=== PATIENT | male | born 1980 | race Caucasian/White ===

== ENCOUNTER 2023-08-06 19:32 | Emergency (ER) | payer MEDICARE, MEDICAID, SELFPAY ==
[2023-08-06 20:11] VITALS: BP 156/99; PULSE 75; RESP 18; TEMP 36.9; O2SAT 95; BMI 32.6
[2023-08-06 21:35] VITALS: BP 156/96; PULSE 77; RESP 16; TEMP 36.8; O2SAT 98
--- NOTE | 2023-08-06 22:35 | ED_ITS ---
HPI - Eye Problem General Chief complaint: Eye Problems Stated complaint: R eye is watery/red Time Seen by Provider: 08/06/23 22:26 Source: patient Mode of arrival: ambulatory Limitations: no limitations History of Present Illness HPI Narrative: Patient comes to the emergency room accompanied by family. Patient complaining of watery eyes. Patient states that he has several allergies, takes Kristine daily. Patient's mother complained that there was a bump on the patient's eyelid on the left. Patient states that he has no pain, no foreign body sensation, no itching, no burning sensation or redness. Patient states that he does not have any crusting of the eyes. No visual changes. Related Data Allergies Allergy/AdvReac Type Severity Reaction Status Date / Time amoxicillin [AMOXICILLIN] Allergy Mild RASH Unverified 08/03/20 15:24 ENVIRONMENTAL Allergy Mild UNKNOWN Uncoded 08/03/20 15:24 Review of Systems Review of Systems: Constitutional : No Weight loss, No Fever, No Chills, No Night Sweats, No Fatigue, No Malaise ENT/Mouth : No Hearing loss, No Ear Pain, No Nasal Congestion, No Sinus Pain, No Hoarseness, No sore throat, No Rhinorrhea, No Swallowing Difficulty Eyes: No Eye Pain, No Swelling, No Redness, dying of watery eyes, no discharge, no vision changes, no foreign body sensation small bump in the eyelid on the left Cardiovascular : No Chest Pain, No SOB, No Dyspnea on Exertion, No Orthopnea, No Edema, No Palpitations Respiratory : No Cough, No Sputum, No Wheezing, No Smoke Exposure, No Dyspnea Gastrointestinal : No Nausea, No Vomiting, No Diarrhea, No Constipation, No abdominal Pain, No Hematochezia, No Melena Genitourinary : no irregular bleeding, No Dysuria, No Urinary Frequency, No Hematuria, No Urinary Incontinence, No Urgency, No Flank Pain, No Urinary Flow Changes, No Hesitancy Musculoskeletal : No joint pain, No Myalgias, No Joint Swelling Skin : No Skin Lesions, No rash Neuro : No Weakness, No Numbness, No Paresthesias, No Loss of Consciousness, No Dizziness, No Headache Psych : No Anxiety/Panic, No Depression, No SI/HI/AH/VH, No Social Issues, Heme/Lymph: No Bruising, No Bleeding,No Lymphadenopathy Endocrine : No Polyuria, No Polydipsia, No Temperature Intolerance PMFSH Past Medical History Medical History (Updated 08/06/23 @ 22:40 by Verona Mcdonough MD) Cognitive developmental delay Social History Social History Advance Directives: No Advance Directives Information Provided: No Physical Exam Vital Signs: Vital Signs: Last Vital Signs Temp 98.2 F 08/06/23 21:35 Pulse 77 08/06/23 21:35 Resp 16 08/06/23 21:35 BP 156/96 H 08/06/23 21:35 Pulse Ox 98 08/06/23 21:35 O2 Del Method Room Air 08/06/23 21:35 BMI result Body Mass Index 32.6 Const: Other: Constitutional : No Weight loss, No Fever, No Chills, No Night Sweats, No Fatigue, No Malaise ENT/Mouth : No Hearing loss, No Ear Pain, No Nasal Congestion, No Sinus Pain, No Hoarseness, No sore throat, No Rhinorrhea, No Swallowing Difficulty Eyes: Bilateral watery eyes, no redness, small stye on the left eye. No Eye Pain, No Swelling, No Redness, No Foreign Body, No Discharge, No Vision Changes Cardiovascular : No Chest Pain, No SOB, No Dyspnea on Exertion, No Orthopnea, No Edema, No Palpitations Respiratory : No Cough, No Sputum, No Wheezing, No Smoke Exposure, No Dyspnea Gastrointestinal : No Nausea, No Vomiting, No Diarrhea, No Constipation, No abdominal Pain, No Hematochezia, No Melena Genitourinary : no irregular bleeding, No Dysuria, No Urinary Frequency, No Hematuria, No Urinary Incontinence, No Urgency, No Flank Pain, No Urinary Flow Changes, No Hesitancy Musculoskeletal : No joint pain, No Myalgias, No Joint Swelling Skin : No Skin Lesions, No rash Neuro : No Weakness, No Numbness, No Paresthesias, No Loss of Consciousness, No Dizziness, No Headache Psych : No Anxiety/Panic, No Depression, No SI/HI/AH/VH, No Social Issues, Heme/Lymph: No Bruising, No Bleeding,No Lymphadenopathy Endocrine : No Polyuria, No Polydipsia, No Temperature Intolerance Medical Decision Making Medical Decision Making MDM Narrative: Discussed the physical exam with the patient and his mother. Patient likely has allergies making his eyes teary. Patient already taking Kristine. 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 Also, discussed with the patient he has a stye, at this time, antibiotics not indicated, discussed with the patient to use warm compresses on both eyes. Patient and mother agree with plan. Differential Diagnosis Differential Diagnoses: The differential diagnosis associated with the presentation includes (Stye, allergic rhinitis, viral conjunctivitis) Discharge Plan Discharge Clinical Impression: Stye, Watery eyes Patient Disposition: Home, Self-Care Instructions: [facility] (ED) Additional Instructions: You may go to work tomorrow. If you feel like you cannot go, you have a work note for 08/07/2023. Please follow-up with your primary care physician tomorrow. If you have any worsening or new symptoms, please return to the emergency room or call 911 Stand Alone Forms: Work/School Release
== END 2023-08-06 22:59 | disposition home or self-care (01) ==
PROVIDERS: Emergency Provider Emergency Medicine; PCP Internal Medicine
DX: H00.013 Hordeolum externum right eye, unspecified eyelid (principal)
CPT/HCPCS: 99282; 99283

== ENCOUNTER 2024-07-18 12:42 | Emergency (ER) | payer OTHER, MEDICARE, MEDICAID, SELFPAY ==
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
[2024-07-18 13:20] VITALS: BP 116/110; PULSE 85; RESP 16; TEMP 36.4; O2SAT 94; BMI 25.0
[2024-07-18 13:49] VITALS: BP 176/112
[2024-07-18] MEDS: Ibuprofen 600 MG TABLET PO (13:49)
[2024-07-18 15:32] VITALS: BP 168/90; PULSE 80; RESP 18; TEMP 36.5; O2SAT 98
[2024-07-18 15:33] VITALS: BP 168/90; PULSE 80; RESP 18; TEMP 36.5; O2SAT 98
== END 2024-07-18 15:33 | disposition home or self-care (01) ==
PROVIDERS: Emergency Provider Emergency Medicine; PCP Internal Medicine
DX: S13.4XXA Sprain of ligaments of cervical spine, initial encounter (principal); S49.92XA Unspecified injury of left shoulder and upper arm, initial encounter; R51.9 Headache, unspecified; M54.2 Cervicalgia; M25.512 Pain in left shoulder; V43.62XA Car passenger injured in collision with other type car in traffic accident, initial encounter; Y93.89 Activity, other specified; Y92.488 Other paved roadways as the place of occurrence of the external cause; Y99.8 Other external cause status
CPT/HCPCS: 70450; 72125; 73030; 99283; 99284

== ENCOUNTER 2025-07-05 09:34 | Outpatient (AMB) | payer MEDICARE, MEDICAID, SELFPAY ==
--- OUTSIDE RECORDS SUMMARY | 2025-07-05 10:39 | XMS_ITS ---
Author Name [facility] Organization Unknown Care Team Organization Name Specialty Phone Email Start Date End Da te [facility] 04/25/202307/05 [facility] 11/25/2022 07/05/2024
--- OUTSIDE RECORDS SUMMARY | 2025-07-05 10:39 | XMS_ITS | Clinical Summary ---
Author Organization [facility] [address] [place] [address] [place] [phone] Phone Care Team Providers Care Chief Medical Technologist Name Role Phone Carlos Garber MD Primary Care Provider [phone] Allergies Active Allergy Reactions Criticality Noted Date Comments Amoxicillin Hives High 01/27/2015 Other Anaphylaxis,Itching,Runny nose High 09/12 Seasonal Medications loratadine (Wal-itin) 10 mg tablet Take 1 tablet (10 mg total) by mouth 1 (one) time each day. Patient Buy OTC Active olopatadine (PATANOL) 0.1 % ophthalmic solution Administer 1 drop into both eyes 1 (one) time each day. Patient buy OTC Active metFORMIN XR (GLUCOPHAGE-XR) 500 mg 24 hr tablet Take 2 tablets (1,000 mg total) by mouth 1 (one) time each day with breakfast. Do not crush, chew, or split. 180 each 1 5 Active cholecalciferol (VITAMIN D-3) 25 mcg (1,000 unit) tablet Take 1 tablet (1,000 Units total) by mouth 1 (one) time each day. 90 each 1 5 Active albuterol HFA (Proventil HFA) 90 mcg/actuation inhalerIndicati ons:Bronchitis Inhale 2 puffs by mouth every 4 (four) hours if needed for wheezing or shortness of breath. 6.7 g 5 01/20/20 26 Active Active Problems Problem Noted Date Diagnosed Date Type 2 diabetes mellitus wit hout complication ([facility] V24, [facility] V28) 03/30/2024 Hypercholesteremia 06/10/2023 Obesity (BMI 30-39.9) 04/09/2019 GERD (gastroesophageal reflux disease) 8 TRINITY (obstructive sleep apnea) 04/26/2016 Mixed hyperlipidemia 04/01/2016 Assessment & Plan (01/19/2025 6:39 PM EST): Last LDL 148. Triglyceride 329. Patient was started on statin. However per mom he did not start this medication. Cardiovascular risk and specific lipid/LDL goals reiterated. Elevation in triglycerides can contribute to causing other complications such as Fatty Liver or Pancreatis. Patient is to decrease carbs and fatty foods, increase exercise and some modest weight loss can be helpful. Nutritional and exercise counseling - Approaches towards weight loss were encouraged, including burning more calories than one takes in by frequent, small meals, portion control, avoiding eating before bedtime, regular exercise with an emphasis on duration rather than intensity , and strength training exercise. Patient is to recheck Lipid profile prior to next appointment. 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 Allergic rhinitis 02/18/2007 Speech disturbance 02/18/2007 Overview (10/27/2024): IMO update Encounters Date Type Department Care Team Description 06/15/2025 10:00 AM EDT Office Visit Adult Medicine [address] [phone] Angel Weber NP Type 2 diabetes mellitus without complication, without long-term current use of insulin ([facility] V24, [facility] V28) (Primary Dx); Hypercholesteremia; TRINITY (obstructive sleep apnea); Need for hepatitis C screening test; Encounter for screening for cardiovascular disorders from Last 3 Months Immunizations Name Administration Dates Next Due DTP 07/18/1987, 3,1982,1981,1982 [id number] (Pentacel) 2mo to less than 5yo 05/18/1985 Hepatitis B Pediatric (Enger ix B; Recombivax HB) to less than 20 yo 08/11/1998,03/10/1998,02/06/1998 Influenza Quadravalent, MDCK , 0.5ml, preservative free (Flucelvax) 6mo and older 09/10/2023,10/30/2022,11/11/2018 Influenza trivalent, 0.5mL, preservative free (Fluarix; FluLaval; Fluzone) ages 6mo and older (Afluria) 3 years and older 09/13/2024,09/21/2014 Influenza, Unspecified 04/01/2015 MMR, measles mumps and rubel la Live (Priorix; M-M-R II) 12mo and older 10/01/1993,1982 OPV 07/18/1987, 3,1982,1981 PPD Test 09/21/2014,05/30/1992,07/08/1986 [facility] SARS-CoV-2 COVID-19, mRNA, LNP-S, preservative free 12/20/2021 Td Tetanus diptheria (Tdvax) 7yo and older 08/13/2017 Tdap Tetanus diptheria acell ular pertussis (Boostrix; Adacel) 7yo and older 02/18/2007 Surgical History Surgery Date Site/Laterality Comments OTHER SURGICAL HISTORY PROCEDURE: DENIES PREVIOUS SURGERY Medical History Medical History Date Comments Allergic rhinitis, cause unspecified 02/18/2007 DX:Allergic rhinitis, cause unspecified Other speech disturbance 02/18/2007 DX:Othe r speech disturbance Trisomy 21 DX:Trisomy 21 Prediabetes DX:Prediabetes Overweight DX:Overweight Hyperlipidemia DX:Hyperlipidemi a Snoring DX:Snoring Obesity (BMI 30-39.9) 04/09/2019 DX:Obesity (BMI 30-39.9) Family History Medical History Relation Name Comments Diabetes Maternal Grandmother Coronary artery disease Neg Hx Hypertension Neg Hx Other cancer Neg Hx Relation Name Status Comments Brother Alive Father Alive Maternal Grandmother Alive diabete s Mother Alive Sister 1 Alive Sister 2 Alive Sister 3 Alive Social History Tobacco Use Types Packs/Day Years Used Date Smoking Tobacco: Never Smokeless Tobacco: Never Tobacco Cessation:Counseling Given: Not Answered Alcohol Use Standard Drinks/Week Comments Yes 0 (1 standard drink = 0.6 oz pur e alcohol) Sex and Gender Information Value Date Recorded Sex Assigned at Not on file Legal Sex Male 3:04 PM EST Gender Identity Not on file Sexual Orientation Not on file Obstetrics History Last Filed Vital Signs Vital Sign Reading Time Taken Comments Blood Pressure 112/80 06/15/2025 9:56 AM EDT Pulse 75 06/15/2025 9:56 AM EDT Temperature 36.3 C (97.4 F) 06/15/2025 9:56 AM EDT Respiratory Rate 14 06/15/2025 9:56 AM EDT Oxygen Saturation 95% 01/19/2025 2:26 PM EST Inhaled Oxygen Concentration - - Weight 82.1 kg (181 lb) 06/15/2025 9:56 AM EDT Height 160 cm (5' 3 ) 06/15/2025 9:56 AM EDT Body Mass Index 32.06 06/15/2025 9:56 AM EDT Plan of Treatment Upcoming Encounters Date Type Department Care Team (Late st Contact Info) Description 12/19/2025 11:15 AM EST Office Visit Adult Medicine [facility] [address] [place] [address] Carlos Garber MD [address] [place] [address] Health Maintenance Due Date Last Done Comments Social Influencers of Health Screening 10/26/2022 Medicare Annual Wellness Visit 06/13/2024 06/13/2023 Influenza Vaccine (#1) 2025 , 09/10/2023, 10/30/2022, Additional history exists Diabetes: Blood Sugar Control Test (HGBA1C) 12/16/2025 06/15/2025, 02/03/2025, 09/13/2024, Additional history exists Diabetes: Annual Urine Albumin-Creatinine Ratio (uACR) 02/03/2026 02/03/2025, 09/13/2024 Diabetes: Annual Retina Eye Exam 02/22/2026 02/22/2025 Diabetes: Annual Foot Exam 06/15/202606/15, 06/15/2025, 06/15/2025, Additional history exists Diabetes: Annual GFR (Glomerular Filtration Rate) 06/15/2026 06/15/2025, 02/03/2025, 09/13/2024, Additional history exists DTaP,Tdap,and Td Vaccines (8 - Td or Tdap) 08/13/2027 08/13/2017, 02/18/2007, 07/18/1987, Additional history exists Cholesterol Screening (Lipid Panel) 02/03/2030 02/03/2025, 09/13/2024, 09/13/2024 HIB Vaccines Completed 05/18/1985, 05/18/1985 IPV Vaccines Completed 07/18/1987, 12/1984, 11/14/1983, Additional history exists MMR Vaccines Completed 10/01/1993, 1982 Hepatitis B Vaccines Completed 08/11/1998, 03/10/1998, 02/06/1998 COVID-19 Vaccine Discontinued 12/20/2021, 03/2021, 02/27/2021 Depression Screening Completed 06/15/2025 Hepatitis C Screening Completed 06/15/2025 HIV Screening Discontinued HPV Vaccines Aged Out No longer eligi ble based on patient's age to complete this topic Hepatitis A Vaccines Aged Out No long er eligible based on patient's age to complete this topic Meningococcal ACWY Vaccine Aged Out N o longer eligible based on patient's age to complete this topic Meningococcal B Vaccine Aged Out No l onger eligible based on patient's age to complete this topic Pneumococcal Vaccine: Pediatrics (0 to 5 Years) and At-Risk Patients (6 to 49 Years) Discontinued RSV Immunization Patients Under 20 months Aged Out No longer eligible based on patient's age to complete this topic Varicella Vaccines Aged Out No longer eligible based on patient's age to complete this topic Procedures Procedure Name Priority Date/Time Associated Diagnosis Comments ASPARTATE AMINOTRANSFERASE Routine 06/15/2025 10:39 AM EDT Type 2 diabetes mellitus without complication, without long-term current use of insulin ([facility] V24, [facility] V28) Mixed hyperlipidemia ALANINE AMINOTRANSFERASE Routine 06/15/2025 10:39 AM EDT Type 2 diabetes mellitus without complication, without long-term current use of insulin ([facility] V24, [facility] V28) Mixed hyperlipidemia BASIC METABOLIC PANEL Routine 06/15/2025 10:39 AM EDT Type 2 diabetes mellitus without complication, without long-term current use of insulin ([facility] V24, [facility] V28) Hypercholesteremia Gastroesophageal reflux disease without esophagitis TRINITY (obstructive sleep apnea) Encounter for screening for cardiovascular disorders Need for hepatitis C screening test HEMOGLOBIN A1C Routine 06/15/2025 10:39 AM EDT Type 2 diabetes mellitus without complication, without long-term current use of insulin ([facility] V24, [facility] V28) Hypercholesteremia Gastroesophageal reflux disease without esophagitis TRINITY (obstructive sleep apnea) Encounter for screening for cardiovascular disorders Need for hepatitis C screening test THYROID STIMULATING HORMONE WITH REFLEX TO FREE T4 AND FREE T3 Routine 06/15/2025 10:39 AM EDT Type 2 diabetes mellitus without complication, without long-term current use of insulin ([facility] V24, [facility] V28) Hypercholesteremia Gastroesophageal reflux disease without esophagitis TRINITY (obstructive sleep apnea) Encounter for screening for cardiovascular disorders Need for hepatitis C screening test HEPATITIS C ANTIBODY Routine 06/15/2025 10:39 AM EDT Need for hepatitis C screening test POC GLUCOSE Routine 06/15/2025 10:24 AM EDT Type 2 diabetes mellitus without complication, without long-term current use of insulin ([facility] V24, [facility] V28) Hypercholesteremia TRINITY (obstructive sleep apnea) Encounter for screening for cardiovascular disorders Need for hepatitis C screening test MICROALBUMIN CREATININE URINE RATIO Routine 02/03/2025 7:54 AM EDT Type 2 diabetes mellitus with obesity ([facility] V24, [facility] V28) LIPID PANEL WITH REFLEX TO DIRECT LDL Routine 02/03/2025 7:54 AM EDT Type 2 diabetes mellitus with obesity ([facility] V24, [facility] V28) HM DIABETES FOOT EXAM Routine 05/04/2024 from Last 3 Months or Most Recently Relevant to Health Maintenance Results * Hepatitis C antibody (06/15/2025 10:39 AM EDT) [facility] Hepatitis C Antibody Negative Negative LAB CHEMISTRY METHOD 06/15/2025 2:19 PM EDT [facility] Blood Venous blood specimen / Unknown Venipuncture / Unknown 06/15/2025 10:39 AM EDT 06/15/2025 10:39 AM EDT Angel Weber SMOKE EATER LAB BLOOD ORDERABLES Final R esult Performing Organization Address [facility] Co de Phone Number [facility] [address] [place] [address], [place] [phone] * Thyroid stimulating hormone with reflex to free t4 and free t3 (06/15/2025 10:39 AM EDT) [facility] TSH 2.12 0.40 - 4.00 mcIU/mL LAB CHEMISTRY METHOD 06/15/2025 1:39 PM EDT [facility] Blood Venous blood specimen / Unknown Venipuncture / Unknown 06/15/2025 10:39 AM EDT 06/15/2025 10:39 AM EDT Angel Weber SMOKE EATER LAB BLOOD ORDERABLES Final R esult Performing Organization Address City/[facility]/ZIP Co de Phone Number [facility] [address] [place] [address], [place] [phone] * Alanine aminotransferase (06/15/2025 10:39 AM EDT) [facility] ALT (SGPT) 32 10 - 60 unit/L LAB CHEMISTRY METHOD 06/15/2025 12:55 PM EDT [facility] Blood Venous blood specimen / Unknown Venipuncture / Unknown 06/15/2025 10:39 AM EDT 06/15/2025 10:39 AM EDT John ALANIS LAB BLOOD ORDERABLES Fin al Result Performing Organization Address City/[facility]/ZIP Co de Phone Number [facility] [address] [place] [address], [place] [phone] * Aspartate aminotransferase (06/15/2025 10:39 AM EDT) [facility] AST (SGOT) 15 10 - 42 unit/L LAB CHEMISTRY METHOD 06/15/2025 12:55 PM EDT [facility] Blood Venous blood specimen / Unknown Venipuncture / Unknown 06/15/2025 10:39 AM EDT 06/15/2025 10:39 AM EDT John ALANIS LAB BLOOD ORDERABLES Fin al Result Performing Organization Address [facility]/ZIP Co de Phone Number [facility] [address] [place] [address], [place] [phone] * Hemoglobin A1c (06/15/2025 10:39 AM EDT) [facility] Hemoglobin A1C 6.0 <6.5 % LAB CHEMISTRY METHOD 06/15/2025 1:58 PM EDT [facility] Mean Bld Glu Estim. 126 mg/dL LAB CHEMISTRY METHOD 06/15/2025 1:58 PM EDT [facility] Blood Venous blood specimen / Unknown Venipuncture / Unknown 06/15/2025 10:39 AM EDT 06/15/2025 10:39 AM EDT Angel Weber SMOKE EATER LAB BLOOD ORDERABLES Final R esult Performing Organization Address [facility]/ZIP Co de Phone Number [facility] [address] [place] [address], [place] [phone] * (ABNORMAL) Basic metabolic panel (06/15/2025 10:39 AM EDT) Sodium 139 133 - 145 mmol/L LAB CHEMISTRY METHOD 06/15/2025 12:55 PM [facility] Potassium 4.0 3.5 - 5.5 mmol/L LAB CHEMISTRY METHOD 06/15/2025 12:55 PM [facility] Chloride 104 96 - 110 mmol/L LAB CHEMISTRY METHOD 06/15/2025 12:55 PM [facility] CO2 30 21 - 32 mmol/L LAB CHEMISTRY METHOD 06/15/2025 12:55 PM [facility] Anion Gap 5 3 - 11 LAB CHEMISTRY METHOD 06/15/2025 12:55 PM [facility] Glucose 115(H) 70 - 100 mg/dL LAB CHEMISTRY METHOD 06/15/2025 12:55 PM [facility] BUN 17 5 - 25 mg/dL LAB CHEMISTRY METHOD 06/15/2025 12:55 PM [facility] Creatinine 0.91 0.70 - 1.30 mg/dL LAB CHEMISTRY METHOD 06/15/2025 12:55 PM [facility] eGFR 107 >=60 mL/min/1. 73m2 LAB CHEMISTRY METHOD 06/15/2025 12:55 PM [facility] Comment:Calculation based on the Chronic Kidney Disease Epidemiology Collaboration (CKD-EPI) equation refit without adjustment for race. BUN/Creatinine Ratio 18.7 LAB CHEMISTRY METHOD 06/15/2025 12:55 PM [facility] Calcium 9.1 8.5 - 10.5 mg/dL LAB CHEMISTRY METHOD 06/15/2025 12:55 PM [facility] Blood Venous blood specimen / Unknown Venipuncture / Unknown 06/15/2025 10:39 AM EDT 06/15/2025 10:39 AM EDT us Angel Weber SMOKE EATER LAB BLOOD ORDERABLES Final R esult [facility] [address] [place] [address], [place] [phone] * POC glucose manually resulted (06/15/2025 10:24 AM EDT) Glucose POC 128 mg/dL Blood Capillary blood specimen / Unknown 06/15/2025 10:24 AM EDT Angel Weber SMOKE EATER POINT OF CARE TEST ENTER/VALERIE T ORDERABLES Final Result * (ABNORMAL) Lipid panel with reflex to direct LDL (02/03/2025 7:54 AM EDT) Cholesterol 203(H) 0 - 200 mg/dL LAB CHEMISTRY METHOD 02/03/2025 11:42 AM EDT [facility] Triglycerides 147 0 - 150 mg/dL LAB CHEMISTRY METHOD 02/03/2025 11:42 AM EDT [facility] HDL 43 >=40 mg/dL LAB CHEMISTRY METHOD 02/03/2025 11:42 AM EDT [facility] LDL Calculated 131(H) 0 - 100 mg/dL LAB CHEMISTRY METHOD 02/03/2025 11:42 AM EDT [facility] VLDL Cholesterol Jr 29.4 mg/dL LAB CHEMISTRY METHOD 02/03/2025 11:42 AM EDT [facility] Non HDL Chol. (LDL+VLDL) 160(H) <145 mg/dL LAB CHEMISTRY METHOD 02/03/2025 11:42 AM EDT [facility] Chol/HDL Ratio 4.7(H) 0.0 - 4.4 LAB CHEMISTRY METHOD 02/03/2025 11:42 AM EDT [facility] Blood Venous blood specimen / Unknown Venipuncture / Unknown 02/03/2025 7:54 AM EDT 02/03/2025 7:54 AM EDT Bonifacio Matias MD LAB BLOOD ORDERABLES F inal Result [facility] [address] [place] [address], [place] [phone] * Microalbumin creatinine urine ratio (02/03/2025 7:54 AM EDT) [facility] Creatinine, Urine 128.0 mg/dL LAB CHEMISTRY METHOD 02/03/2025 11:35 AM EDT [facility] Microalb, Ur 15.3 0.0 - 29.0 mg/L LAB CHEMISTRY METHOD 02/03/2025 11:35 AM EDT [facility] Microalb/Creat Ratio 12 <30 mg/g creat LAB CHEMISTRY METHOD 02/03/2025 11:35 AM EDT [facility] Urine Urine specimen obtained by clean catch procedure / Unknown Non-blood Collection / Unknown 02/03/2025 7:54 AM EDT 02/03/2025 7:54 AM EDT Bonifacio Matias MD LAB URINE ORDERABLES F inal Result Performing Organization Address City/[facility]/ZIP Co de Phone Number [facility] [address] [place] [address], [place] [phone] * Diabetes Foot Exam (05/04/2024) [facility] Diabetes: Annual Foot Exam abstracted Historical Provider HEALTH MAINTENANCE Final Result from Last 3 Months or Most Recently Relevant to Health Maintenance Insurance MEDICARE [place]ICAID [place] [employer] Care Teams Chief Medical Technologist Relationship Specialty Start Date End Date Carlos Garber MD [address] [place] [address] PCP - General Internal Medicine 09/15/14
== END 2025-07-05 10:41 | disposition home or self-care (01) ==
LOC: HO.HMGAL 09:34
PROVIDERS: PCP Internal Medicine; Visit Provider Registered Nurse Emergency
DX: J30.89 Other allergic rhinitis (principal)
CPT/HCPCS: 95117; 95165

== ENCOUNTER 2025-07-11 15:00 | Outpatient (AMB) | payer MEDICARE, MEDICAID, SELFPAY ==
--- OUTSIDE RECORDS SUMMARY | 2025-07-11 16:41 | XMS_ITS | Clinical Summary ---
Author Organization [facility] [address] [place] [address] [place] [phone] Phone Care Team Providers Care Surfacer Operator Name Role Phone Carlos Garber MD Primary Care Provider Allergies Active Allergy Reactions Criticality Noted Date [...] Type 2 diabetes mellitus wit hout complication ([facility] V24, [facility] V28) 03/30/2024 Hypercholesteremia 06/10/2023 Obesity [...] Encounters Date Type Department Care Team Description 07/05/2025 Telephone Adult Medicine [address] [phone] Carlos Garber MD 06/15/2025 10:00 AM EDT Office Visit Adult Medicine [address] [phone] Angel Weber NP Type 2 diabetes mellitus without complication, without long-term current use of insulin ([facility] V24, [facility] V28) (Primary Dx); Hypercholesteremia; TRINITY (obstructive sleep apnea); Need for hepatitis C screening test; Encounter for screening for cardiovascular disorders from Last 3 Months Immunizations Name Administration Dates Next Due DTP 07/18/1987, 3,1982,1981,1982 ROvA-[id number] (Pentacel) 2mo to less than 5yo 05/18/1985 [...] 10/01/1993,1982 OPV 07/18/1987, 3,1982,1981 PPD Test 09/21/2014,05/30/1992,07/08/1986 Intellinote SARS-CoV-2 COVID-19, mRNA, LNP-S, preservative free 12/20/2021 [...] 11:15 AM EST Office Visit Adult Medicine [address] [phone] Carlos Garber MD [address] [place] [phone] Health Maintenance Due Date Last Done Comments [...] complication, without long-term current use of insulin ([facility] V24, [facility] V28) Mixed hyperlipidemia ALANINE AMINOTRANSFERASE Routine 06/15/2025 10:39 AM EDT Type 2 diabetes mellitus without complication, without long-term current use of insulin ([facility] V24, [facility] V28) Mixed hyperlipidemia BASIC METABOLIC PANEL Routine 06/15/2025 10:39 AM EDT Type 2 diabetes mellitus without complication, without long-term current use of insulin ([facility] V24, [facility] V28) Hypercholesteremia Gastroesophageal reflux disease without esophagitis TRINITY (obstructive sleep apnea) Encounter for screening for cardiovascular disorders Need for hepatitis C screening test HEMOGLOBIN A1C Routine 06/15/2025 10:39 AM EDT Type 2 diabetes mellitus without complication, without long-term current use of insulin ([facility] V24, [facility] V28) Hypercholesteremia Gastroesophageal reflux disease without esophagitis TRINITY (obstructive sleep apnea) Encounter for screening for cardiovascular disorders Need for hepatitis C screening test THYROID STIMULATING HORMONE WITH REFLEX TO FREE T4 AND FREE T3 Routine 06/15/2025 10:39 AM EDT Type 2 diabetes mellitus without complication, without long-term current use of insulin ([facility] V24, [facility] V28) Hypercholesteremia Gastroesophageal reflux disease without esophagitis TRINITY (obstructive sleep apnea) Encounter for screening for cardiovascular disorders Need for hepatitis C screening test HEPATITIS C ANTIBODY Routine 06/15/2025 10:39 AM EDT Need for hepatitis C screening test POC GLUCOSE Routine 06/15/2025 10:24 AM EDT Type 2 diabetes mellitus without complication, without long-term current use of insulin ([facility] V24, [facility] V28) Hypercholesteremia TRINITY (obstructive sleep apnea) Encounter for screening for cardiovascular disorders Need for hepatitis C screening test MICROALBUMIN CREATININE URINE RATIO Routine 02/03/2025 7:54 AM EDT Type 2 diabetes mellitus with obesity ([facility] V24, [facility] V28) LIPID PANEL WITH REFLEX TO DIRECT LDL Routine 02/03/2025 7:54 AM EDT Type 2 diabetes mellitus with obesity ([facility] V24, [facility] V28) DIABETES FOOT EXAM Routine 05/04/2024 from Last 3 Months or Most Recently Relevant to Health Maintenance Results * Hepatitis C antibody (06/15/2025 10:39 AM EDT) [facility] Hepatitis C Antibody Negative Negative LAB CHEMISTRY METHOD 06/15/2025 2:19 PM EDT [facility] Blood Venous blood specimen / Unknown Venipuncture / Unknown 06/15/2025 10:39 AM EDT 06/15/2025 10:39 AM EDT Angel Weber LINOTYPIST LAB BLOOD ORDERABLES Final R esult Performing Organization Address City/[facility]/ZIP Co de Phone Number [facility] [address] [place] [address], [place] [phone] * Thyroid stimulating hormone with reflex to free t4 and free t3 (06/15/2025 10:39 AM EDT) [facility] TSH 2.12 0.40 - 4.00 mcIU/mL LAB CHEMISTRY METHOD 06/15/2025 1:39 PM EDT [facility] Blood Venous blood specimen / Unknown Venipuncture / Unknown 06/15/2025 10:39 AM EDT 06/15/2025 10:39 AM EDT Angel Weber LINOTYPIST LAB BLOOD ORDERABLES Final R esult Performing Organization Address City/[facility]/ZIP Co de Phone Number [facility] [address] [place] [address], [place] [phone] * Alanine aminotransferase (06/15/2025 10:39 AM EDT) [facility] ALT (SGPT) 32 10 - 60 unit/L LAB CHEMISTRY METHOD 06/15/2025 12:55 PM EDT [facility] Blood Venous blood specimen / Unknown Venipuncture / Unknown 06/15/2025 10:39 AM EDT 06/15/2025 10:39 AM EDT John ALANIS LAB BLOOD ORDERABLES Fin al Result [facility] [address] [place] [address], [place] [phone] * Aspartate aminotransferase (06/15/2025 10:39 AM EDT) AST (SGOT) 15 10 - 42 unit/L LAB CHEMISTRY METHOD 06/15/2025 12:55 PM EDT [facility] Blood Venous blood specimen / Unknown Venipuncture / Unknown 06/15/2025 10:39 AM EDT 06/15/2025 10:39 AM EDT John ALANIS LAB BLOOD ORDERABLES Fin al Result Performing Organization Address City/[facility]/ZIP Co de Phone Number [facility] [address] [place] [address], [place] [phone] * Hemoglobin A1c (06/15/2025 10:39 AM EDT) Hemoglobin A1C 6.0 <6.5 % LAB CHEMISTRY METHOD 06/15/2025 1:58 PM EDT [facility] Mean Bld Glu Estim. 126 mg/dL LAB CHEMISTRY METHOD 06/15/2025 1:58 PM EDT [facility] Blood Venous blood specimen / Unknown Venipuncture / Unknown 06/15/2025 10:39 AM EDT 06/15/2025 10:39 AM EDT Angel Weber LINOTYPIST LAB BLOOD ORDERABLES Final R esult [facility] [address] [place] [address], * (ABNORMAL) Basic metabolic panel (06/15/2025 10:39 AM EDT) Sodium 139 133 - 145 mmol/L LAB CHEMISTRY METHOD 06/15/2025 12:55 PM [facility] Potassium 4.0 3.5 - 5.5 mmol/L LAB CHEMISTRY METHOD 06/15/2025 12:55 PM [facility] Chloride 104 96 - 110 mmol/L LAB CHEMISTRY METHOD 06/15/2025 12:55 PM [facility] CO2 30 21 - 32 mmol/L LAB CHEMISTRY METHOD 06/15/2025 12:55 PM [facility] Anion Gap 5 3 - 11 LAB CHEMISTRY METHOD 06/15/2025 12:55 PM [facility] Glucose 115(H) 70 - 100 mg/dL LAB CHEMISTRY METHOD 06/15/2025 12:55 PM [facility] BUN 17 5 - 25 mg/dL LAB CHEMISTRY METHOD 06/15/2025 12:55 PM [facility] Creatinine 0.91 0.70 - 1.30 mg/dL LAB CHEMISTRY METHOD 06/15/2025 12:55 PM [facility] eGFR 107 >=60 mL/min/1. 73m2 LAB CHEMISTRY METHOD 06/15/2025 12:55 PM [facility] Comment:Calculation based on the Chronic Kidney Disease Epidemiology Collaboration (CKD-EPI) equation refit without adjustment for race. BUN/Creatinine Ratio 18.7 LAB CHEMISTRY METHOD 06/15/2025 12:55 PM [facility] Calcium 9.1 8.5 - 10.5 mg/dL LAB CHEMISTRY METHOD 06/15/2025 12:55 PM [facility] Blood Venous blood specimen / Unknown Venipuncture / Unknown 06/15/2025 10:39 AM EDT 06/15/2025 10:39 AM EDT Angel Weber LINOTYPIST LAB BLOOD ORDERABLES Final R esult [facility] [address] [place] [address], [place] [phone] * POC glucose manually resulted (06/15/2025 10:24 AM EDT) Glucose POC 128 mg/dL Blood Capillary blood specimen / Unknown 06/15/2025 10:24 AM EDT Angel Weber LINOTYPIST POINT OF CARE TEST ENTER/VALERIE T ORDERABLES Final Result * (ABNORMAL) Lipid panel with reflex to direct LDL (02/03/2025 7:54 AM EDT) Cholesterol 203(H) 0 - 200 mg/dL LAB CHEMISTRY METHOD 02/03/2025 11:42 AM EDT [facility] Triglycerides 147 0 - 150 mg/dL LAB CHEMISTRY METHOD 02/03/2025 11:42 AM T [facility] HDL 43 >=40 mg/dL LAB CHEMISTRY METHOD 02/03/2025 11:42 AM T [facility] LDL Calculated 131(H) 0 - 100 mg/dL LAB CHEMISTRY METHOD 02/03/2025 11:42 AM T [facility] VLDL Cholesterol Jr 29.4 mg/dL LAB CHEMISTRY METHOD 02/03/2025 11:42 AM EDT [facility] Non HDL Chol. (LDL+VLDL) 160(H) <145 mg/dL LAB CHEMISTRY METHOD 02/03/2025 11:42 AM EDT [facility] Chol/HDL Ratio 4.7(H) 0.0 - 4.4 LAB CHEMISTRY METHOD 02/03/2025 11:42 AM [facility] Blood Venous blood specimen / Unknown Venipuncture / Unknown 02/03/2025 7:54 AM EDT 02/03/2025 7:54 AM EDT Bonifacio Matias MD LAB BLOOD ORDERABLES F inal Result Performing Organization Address [facility]/ZIP Co de Phone Number [facility] [address] [place] [address], [place] [phone] * Microalbumin creatinine urine ratio (02/03/2025 7:54 AM EDT) Creatinine, Urine 128.0 mg/dL LAB CHEMISTRY METHOD 02/03/2025 11:35 AM EDT [facility] Microalb, Ur 15.3 0.0 - 29.0 mg/L LAB CHEMISTRY METHOD 02/03/2025 11:35 AM EDT [facility] Microalb/Creat Ratio 12 <30 mg/g creat LAB CHEMISTRY METHOD 02/03/2025 11:35 AM EDT [facility] Urine Urine specimen obtained by clean catch procedure / Unknown Non-blood Collection / Unknown 02/03/2025 7:54 AM EDT 02/03/2025 7:54 AM EDT Bonifacio Matias MD LAB URINE ORDERABLES F inal Result Performing Organization Address City/[facility]/ZIP Co de Phone Number [facility] [address] [place] [address], [place] [phone] * Diabetes Foot Exam (05/04/2024) [facility] Diabetes: Annual Foot Exam abstracted Prudence Argueta MD HEALTH MAINTENANCE Final Result from Last 3 Months or Most Recently Relevant to Health Maintenance Insurance MEDICARE [place]ICAID [place] Care Teams Surfacer Operator Relationship Specialty Start Date End Date Carlos Garber MD [address] [place] [address] PCP - General Internal Medicine 09/15/14
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
== END 2025-07-12 14:01 | disposition home or self-care (01) ==
LOC: HO.HMGAL 15:00
PROVIDERS: PCP Internal Medicine; Visit Provider Registered Nurse Emergency
DX: J30.89 Other allergic rhinitis (principal)
CPT/HCPCS: 95117; 95165

== ENCOUNTER 2025-07-20 15:05 | Outpatient (AMB) | payer MEDICARE, MEDICAID, SELFPAY ==
--- OUTSIDE RECORDS SUMMARY | 2025-07-20 17:13 | XMS_ITS | Clinical Summary ---
Author Organization [facility] [address] [place] [address] [place] [phone] Phone Care Team Providers Care Tire Regrooving Machine Operator Name Role Phone Carlos Garber MD Primary Care Provider [phone] Allergies Active Allergy Reactions Criticality Noted Date [...] Type 2 diabetes mellitus wit hout complication ([facility] V24, [facility] V28) 03/30/2024 Hypercholesteremia 06/10/2023 Obesity (BMI 30-39.9) [...] Care Team Description 07/05/2025 Telephone Adult Medicine [address] [phone] Carlos Garber MD 06/15/2025 10:00 AM EDT Office Visit Adult Medicine [address] [phone] Angel Weber NP Type 2 diabetes mellitus without complication, without long-term current use of insulin ([facility] V24, [facility] V28) (Primary Dx); Hypercholesteremia; TRINIYT (obstructive sleep apnea); Need for hepatitis C screening test; Encounter for screening for cardiovascular disorders from Last 3 Months Immunizations Name Administration Dates Next Due DTP 07/18/1987, 3,1982,1981,1982 [id number] (Pentacel) 2mo to less than 5yo 05/18/1985 [...] 10/01/1993,1982 OPV 07/18/1987, 3,1982,1981 PPD Test 09/21/2014,05/30/1992,07/08/1986 [employer] SARS-CoV-2 COVID-19, mRNA, LNP-S, preservative free 12/20/2021 [...] Care Team (Late st Contact Info) Description 07/26/2025 4:00 PM EDT Office Visit Adult [address] [phone] Angel Weber NP [address] [place] [address] 12/19/2025 11:15 AM EST Office Visit Adult [address] [phone] Carlos Garber MD [address] [place] [address] Health Maintenance Due Date Last Done Comments [...] complication, without long-term current use of insulin ([facility] V24, [facility] V28) Mixed hyperlipidemia ALANINE AMINOTRANSFERASE Routine 06/15/2025 10:39 AM EDT Type 2 diabetes mellitus without complication, without long-term current use of insulin ([facility] V24, [facility] V28) Mixed hyperlipidemia BASIC METABOLIC PANEL Routine 06/15/2025 10:39 AM EDT Type 2 diabetes mellitus without complication, without long-term current use of insulin ([facility] V24, [facility] V28) Hypercholesteremia Gastroesophageal reflux disease without esophagitis TRINITY (obstructive sleep apnea) Encounter for screening for cardiovascular disorders Need for hepatitis C screening test HEMOGLOBIN A1C Routine 06/15/2025 10:39 AM EDT Type 2 diabetes mellitus without complication, without long-term current use of insulin ([facility] V24, [facility] V28) Hypercholesteremia Gastroesophageal reflux disease without esophagitis TRINITY (obstructive sleep apnea) Encounter for screening for cardiovascular disorders Need for hepatitis C screening test THYROID STIMULATING HORMONE WITH REFLEX TO FREE T4 AND FREE T3 Routine 06/15/2025 10:39 AM EDT Type 2 diabetes mellitus without complication, without long-term current use of insulin ([facility] V24, [facility] V28) Hypercholesteremia Gastroesophageal reflux disease without esophagitis TRINITY (obstructive sleep apnea) Encounter for screening for cardiovascular disorders Need for hepatitis C screening test HEPATITIS C ANTIBODY Routine 06/15/2025 10:39 AM EDT Need for hepatitis C screening test POC GLUCOSE Routine 06/15/2025 10:24 AM EDT Type 2 diabetes mellitus without complication, without long-term current use of insulin ([facility] V24, [facility] V28) Hypercholesteremia TRINITY (obstructive sleep apnea) Encounter for screening for cardiovascular disorders Need for hepatitis C screening test MICROALBUMIN CREATININE URINE RATIO Routine 02/03/2025 7:54 AM EDT Type 2 diabetes mellitus with obesity ([facility] V24, [facility] V28) LIPID PANEL WITH REFLEX TO DIRECT LDL Routine 02/03/2025 7:54 AM EDT Type 2 diabetes mellitus with obesity ([facility] V24, [facility] V28) DIABETES FOOT EXAM Routine 05/04/2024 from Last 3 Months or Most Recently Relevant to Health Maintenance Results * Hepatitis C antibody (06/15/2025 10:39 AM EDT) [facility] Hepatitis C Antibody Negative Negative LAB CHEMISTRY METHOD 06/15/2025 2:19 PM EDT [facility] Blood Venous blood specimen / Unknown Venipuncture / Unknown 06/15/2025 10:39 AM EDT 06/15/2025 10:39 AM EDT Angel Weber NEON GLASS BENDER LAB BLOOD ORDERABLES Final R esult Performing Organization Address City/[facility] Co de Phone Number [facility] [address] [place] [address], [place] [phone] * Thyroid stimulating hormone with reflex to free t4 and free t3 (06/15/2025 10:39 AM EDT) [facility] TSH 2.12 0.40 - 4.00 mcIU/mL LAB CHEMISTRY METHOD 06/15/2025 1:39 PM EDT [facility] Blood Venous blood specimen / Unknown Venipuncture / Unknown 06/15/2025 10:39 AM EDT 06/15/2025 10:39 AM EDT Angel Weber NEON GLASS BENDER LAB BLOOD ORDERABLES Final R esult [facility] [address] [place] [address], [place] [phone] * Alanine aminotransferase (06/15/2025 10:39 AM EDT) [facility] ALT (SGPT) 32 10 - 60 unit/L LAB CHEMISTRY METHOD 06/15/2025 12:55 PM EDT [facility] Blood Venous blood specimen / Unknown Venipuncture / Unknown 06/15/2025 10:39 AM EDT 06/15/2025 10:39 AM EDT John ALANIS LAB BLOOD ORDERABLES Fin al Result Performing Organization Address [facility] Co de Phone Number [facility] [address] [place] [address], [place] [phone] * Aspartate aminotransferase (06/15/2025 10:39 AM EDT) [facility] AST (SGOT) 15 10 - 42 unit/L LAB CHEMISTRY METHOD 06/15/2025 12:55 PM EDT [facility] Blood Venous blood specimen / Unknown Venipuncture / Unknown 06/15/2025 10:39 AM EDT 06/15/2025 10:39 AM EDT John ALANIS LAB BLOOD ORDERABLES Fin al Result Performing Organization Address City/[facility]/ZIP Co de Phone Number [facility] [address] [place] [address], [place] [phone] * Hemoglobin A1c (06/15/2025 10:39 AM EDT) [facility] Hemoglobin A1C 6.0 <6.5 % LAB CHEMISTRY METHOD 06/15/2025 1:58 PM EDT [facility] Mean Bld Glu Estim. 126 mg/dL LAB CHEMISTRY METHOD 06/15/2025 1:58 PM EDT [facility] Blood Venous blood specimen / Unknown Venipuncture / Unknown 06/15/2025 10:39 AM EDT 06/15/2025 10:39 AM EDT Angel Weber NP LAB BLOOD ORDERABLES Final R esult [facility] [address] [place] [address], * (ABNORMAL) Basic metabolic panel (06/15/2025 10:39 AM EDT) Sodium 139 133 - 145 mmol/L LAB CHEMISTRY METHOD 06/15/2025 12:55 PM [facility] Potassium 4.0 3.5 - 5.5 mmol/L LAB CHEMISTRY METHOD 06/15/2025 12:55 PM [facility] Chloride 104 96 - 110 mmol/L LAB CHEMISTRY METHOD 06/15/2025 12:55 PM [facility] CO2 30 21 - 32 mmol/L LAB CHEMISTRY METHOD 06/15/2025 12:55 PM [facility] Anion Gap 5 3 - 11 LAB CHEMISTRY METHOD 06/15/2025 12:55 PM [facility] Glucose 115(H) 70 - 100 mg/dL LAB CHEMISTRY METHOD 06/15/2025 12:55 PM [facility] BUN 17 5 - 25 mg/dL LAB CHEMISTRY METHOD 06/15/2025 12:55 PM [facility] Creatinine 0.91 0.70 - 1.30 mg/dL LAB CHEMISTRY METHOD 06/15/2025 12:55 PM [facility] eGFR 107 >=60 mL/min/1. 73m2 LAB CHEMISTRY METHOD 06/15/2025 12:55 PM [facility] Comment:Calculation based on the Chronic Kidney Disease Epidemiology Collaboration (CKD-EPI) equation refit without adjustment for race. BUN/Creatinine Ratio 18.7 LAB CHEMISTRY METHOD 06/15/2025 12:55 PM EDT [facility] Calcium 9.1 8.5 - 10.5 mg/dL LAB CHEMISTRY METHOD 06/15/2025 12:55 PM EDT [facility] Blood Venous blood specimen / Unknown Venipuncture / Unknown 06/15/2025 10:39 AM EDT 06/15/2025 10:39 AM EDT Angel Weber NEON GLASS BENDER LAB BLOOD ORDERABLES Final R esult [facility] [address] [place] [address], * POC glucose manually resulted (06/15/2025 10:24 AM EDT) Glucose POC 128 mg/dL Blood Capillary blood specimen / Unknown 06/15/2025 10:24 AM EDT Angel Weber NEON GLASS BENDER POINT OF CARE TEST ENTER/VALERIE T ORDERABLES Final Result * (ABNORMAL) Lipid panel with reflex to direct LDL (02/03/2025 7:54 AM EDT) Cholesterol 203(H) 0 - 200 mg/dL LAB CHEMISTRY METHOD 02/03/2025 11:42 AM EDT [facility] Triglycerides 147 0 - 150 mg/dL LAB CHEMISTRY METHOD 02/03/2025 11:42 AM EDT [facility] HDL 43 >=40 mg/dL LAB CHEMISTRY METHOD 02/03/2025 11:42 AM EDT [facility] LDL Calculated 131(H) 0 - 100 mg/dL LAB CHEMISTRY METHOD 02/03/2025 11:42 AM EDT [facility] VLDL Cholesterol Jr 29.4 mg/dL LAB CHEMISTRY METHOD 02/03/2025 11:42 AM EDT [facility] Non HDL Chol. (LDL+VLDL) 160(H) <145 mg/dL LAB CHEMISTRY METHOD 02/03/2025 11:42 AM EDT [facility] Chol/HDL Ratio 4.7(H) 0.0 - 4.4 LAB CHEMISTRY METHOD 02/03/2025 11:42 AM EDT [facility] Blood Venous blood specimen / Unknown Venipuncture / Unknown 02/03/2025 7:54 AM EDT 02/03/2025 7:54 AM EDT us Bonifacio Matias MD LAB BLOOD ORDERABLES F inal Result Performing Organization Address City/[facility]/ZIP Co de Phone Number [facility] [address] [place] [address], [place] [phone] * Microalbumin creatinine urine ratio (02/03/2025 7:54 AM EDT) Creatinine, Urine 128.0 mg/dL LAB CHEMISTRY METHOD 02/03/2025 11:35 AM EDT [facility] Microalb, Ur 15.3 0.0 - 29.0 mg/L LAB CHEMISTRY METHOD 02/03/2025 11:35 AM EDT [facility] Microalb/Creat Ratio 12 <30 mg/g creat LAB CHEMISTRY METHOD 02/03/2025 11:35 AM EDT [facility] Urine Urine specimen obtained by clean catch procedure / Unknown Non-blood Collection / Unknown 02/03/2025 7:54 AM EDT 02/03/2025 7:54 AM EDT us Bonifacio Matias MD LAB URINE ORDERABLES F inal Result Performing Organization Address [facility]/ZIP Co de Phone Number [facility] [address] [place] [address], [place] [phone] * Diabetes Foot Exam (05/04/2024) Diabetes: Annual Foot Exam abstracted us Historical Provider HEALTH MAINTENANCE Final Result from Last 3 Months or Most Recently Relevant to Health Maintenance Insurance MEDICARE [place]ICAID [place] Care Teams Tire Regrooving Machine Operator Relationship Specialty Start Date End Date Carlos Garber MD [address] [place] [address] PCP - General Internal Medicine 09/15/14
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
== END 2025-07-20 15:07 | disposition home or self-care (01) ==
LOC: HO.HMGAL 15:05
PROVIDERS: PCP Internal Medicine; Visit Provider Registered Nurse Emergency
DX: J30.89 Other allergic rhinitis (principal)
CPT/HCPCS: 95117; 95165

== ENCOUNTER 2025-07-25 14:45 | Outpatient (AMB) | payer MEDICARE, MEDICAID, SELFPAY ==
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
--- OUTSIDE RECORDS SUMMARY | 2025-07-25 17:06 | XMS_ITS | Clinical Summary ---
Author Organization [facility] [address] [place] [address] [place] [phone] Phone Care Team Providers Care Willow Machine Tender Name Role Phone Carlos Garber MD Primary Care Provider [phone] Allergies Active Allergy Reactions Criticality Noted Date [...] Type 2 diabetes mellitus wit hout complication ([facility] V24, [facility] V28) 03/30/2024 Hypercholesteremia 06/10/2023 Obesity (BMI 30-39.9) [...] Care Team Description 07/05/2025 Telephone Adult Medicine [address] [phone] Carlos Garber MD 06/15/2025 10:00 AM EDT Office Visit Adult Medicine [address] [phone] Angel Weber NP Type 2 diabetes mellitus without complication, without long-term current use of insulin ([facility] V24, [facility] V28) (Primary Dx); Hypercholesteremia; TRINITY (obstructive sleep apnea); Need for hepatitis C screening test; Encounter for screening for cardiovascular disorders from Last 3 Months Immunizations Name Administration Dates Next Due DTP 07/18/1987, 3,1982,1981,1982 EXhF-SIA-NNO (Pentacel) 2mo to less than 5yo 05/18/1985 [...] 10/01/1993,1982 OPV 07/18/1987, 3,1982,1981 PPD Test 09/21/2014,05/30/1992,07/08/1986 VANDOLAY SARS-CoV-2 COVID-19, mRNA, LNP-S, preservative free 12/20/2021 [...] 07/26/2025 4:00 PM EDT Office Visit Adult [address] [phone] Angel Weber NP [address] [place] [address] 12/19/2025 11:15 AM EST Office Visit Adult [address] [phone] Carlos Garber MD [address] [place] [address] Health Maintenance Due Date Last Done Comments [...] complication, without long-term current use of insulin ([facility] V24, [facility] V28) Mixed hyperlipidemia ALANINE AMINOTRANSFERASE Routine 06/15/2025 10:39 AM EDT Type 2 diabetes mellitus without complication, without long-term current use of insulin ([facility] V24, [facility] V28) Mixed hyperlipidemia BASIC METABOLIC PANEL Routine 06/15/2025 10:39 AM EDT Type 2 diabetes mellitus without complication, without long-term current use of insulin ([facility] V24, [facility] V28) Hypercholesteremia Gastroesophageal reflux disease without esophagitis TRINITY (obstructive sleep apnea) Encounter for screening for cardiovascular disorders Need for hepatitis C screening test HEMOGLOBIN A1C Routine 06/15/2025 10:39 AM EDT Type 2 diabetes mellitus without complication, without long-term current use of insulin ([facility] V24, [facility] V28) Hypercholesteremia Gastroesophageal reflux disease without esophagitis TRINITY (obstructive sleep apnea) Encounter for screening for cardiovascular disorders Need for hepatitis C screening test THYROID STIMULATING HORMONE WITH REFLEX TO FREE T4 AND FREE T3 Routine 06/15/2025 10:39 AM EDT Type 2 diabetes mellitus without complication, without long-term current use of insulin ([facility] V24, [facility] V28) Hypercholesteremia Gastroesophageal reflux disease without esophagitis TRINITY (obstructive sleep apnea) Encounter for screening for cardiovascular disorders Need for hepatitis C screening test HEPATITIS C ANTIBODY Routine 06/15/2025 10:39 AM EDT Need for hepatitis C screening test POC GLUCOSE Routine 06/15/2025 10:24 AM EDT Type 2 diabetes mellitus without complication, without long-term current use of insulin ([facility] V24, [facility] V28) Hypercholesteremia TRINITY (obstructive sleep apnea) Encounter for screening for cardiovascular disorders Need for hepatitis C screening test MICROALBUMIN CREATININE URINE RATIO Routine 02/03/2025 7:54 AM EDT Type 2 diabetes mellitus with obesity ([facility] V24, [facility] V28) LIPID PANEL WITH REFLEX TO DIRECT LDL Routine 02/03/2025 7:54 AM EDT Type 2 diabetes mellitus with obesity ([facility] V24, [facility] V28) DIABETES FOOT EXAM Routine 05/04/2024 from Last 3 Months or Most Recently Relevant to Health Maintenance Results * Hepatitis C antibody (06/15/2025 10:39 AM EDT) [facility] Hepatitis C Antibody Negative Negative LAB CHEMISTRY METHOD 06/15/2025 2:19 PM EDT [facility] Blood Venous blood specimen / Unknown Venipuncture / Unknown 06/15/2025 10:39 AM EDT 06/15/2025 10:39 AM EDT Angel Weber PLANT CLERK LAB BLOOD ORDERABLES Final R esult Performing Organization Address City/[facility] Co de Phone Number [facility] [address] [place] [address], [place] [phone] * Thyroid stimulating hormone with reflex to free t4 and free t3 (06/15/2025 10:39 AM EDT) [facility] TSH 2.12 0.40 - 4.00 mcIU/mL LAB CHEMISTRY METHOD 06/15/2025 1:39 PM EDT [facility] Blood Venous blood specimen / Unknown Venipuncture / Unknown 06/15/2025 10:39 AM EDT 06/15/2025 10:39 AM EDT Angel Weber PLANT CLERK LAB BLOOD ORDERABLES Final R esult [facility] [address] [place] [address], [place] [phone] * Alanine aminotransferase (06/15/2025 10:39 AM EDT) [facility] ALT (SGPT) 32 10 - 60 unit/L LAB CHEMISTRY METHOD 06/15/2025 12:55 PM EDT [facility] Blood Venous blood specimen / Unknown Venipuncture / Unknown 06/15/2025 10:39 AM EDT 06/15/2025 10:39 AM EDT John ALANIS LAB BLOOD ORDERABLES Fin al Result Performing Organization Address [facility] Co de Phone Number [facility] [address] [place] [address], [place] [phone] * Aspartate aminotransferase (06/15/2025 10:39 AM EDT) [facility] AST (SGOT) 15 10 - 42 unit/L LAB CHEMISTRY METHOD 06/15/2025 12:55 PM EDT [facility] Blood Venous blood specimen / Unknown Venipuncture / Unknown 06/15/2025 10:39 AM EDT 06/15/2025 10:39 AM EDT John ALANIS LAB BLOOD ORDERABLES Fin al Result Performing Organization Address City/[facility]/ZIP Co de Phone Number [facility] [address] [place] [address], [place] [phone] * Hemoglobin A1c (06/15/2025 10:39 AM EDT) [facility] Hemoglobin A1C 6.0 <6.5 % LAB CHEMISTRY METHOD 06/15/2025 1:58 PM EDT [facility] Mean Bld Glu Estim. 126 mg/dL LAB CHEMISTRY METHOD 06/15/2025 1:58 PM EDT [facility] Blood Venous blood specimen / Unknown Venipuncture / Unknown 06/15/2025 10:39 AM EDT 06/15/2025 10:39 AM EDT Angel Weber NP LAB BLOOD ORDERABLES Final R esult [facility] [address] [place] [address], * (ABNORMAL) Basic metabolic panel (06/15/2025 10:39 AM EDT) Sodium 139 133 - 145 mmol/L LAB CHEMISTRY METHOD 06/15/2025 12:55 PM [facility] Potassium 4.0 3.5 - 5.5 mmol/L LAB CHEMISTRY METHOD 06/15/2025 12:55 PM [facility] Chloride 104 96 - 110 mmol/L LAB CHEMISTRY METHOD 06/15/2025 12:55 PM [facility] CO2 30 21 - 32 mmol/L LAB CHEMISTRY METHOD 06/15/2025 12:55 PM [facility] Anion Gap 5 3 - 11 LAB CHEMISTRY METHOD 06/15/2025 12:55 PM [facility] Glucose 115(H) 70 - 100 mg/dL LAB CHEMISTRY METHOD 06/15/2025 12:55 PM [facility] BUN 17 5 - 25 mg/dL LAB CHEMISTRY METHOD 06/15/2025 12:55 PM [facility] Creatinine 0.91 0.70 - 1.30 mg/dL LAB CHEMISTRY METHOD 06/15/2025 12:55 PM [facility] eGFR 107 >=60 mL/min/1. 73m2 LAB CHEMISTRY METHOD 06/15/2025 12:55 PM [facility] Comment:Calculation based on the Chronic Kidney Disease Epidemiology Collaboration (CKD-EPI) equation refit without adjustment for race. BUN/Creatinine Ratio 18.7 LAB CHEMISTRY METHOD 06/15/2025 12:55 PM EDT [facility] Calcium 9.1 8.5 - 10.5 mg/dL LAB CHEMISTRY METHOD 06/15/2025 12:55 PM EDT [facility] Blood Venous blood specimen / Unknown Venipuncture / Unknown 06/15/2025 10:39 AM EDT 06/15/2025 10:39 AM EDT Angel Weber PLANT CLERK LAB BLOOD ORDERABLES Final R esult [facility] [address] [place] [address], * POC glucose manually resulted (06/15/2025 10:24 AM EDT) Glucose POC 128 mg/dL Blood Capillary blood specimen / Unknown 06/15/2025 10:24 AM EDT Angel Weber PLANT CLERK POINT OF CARE TEST ENTER/VALERIE T ORDERABLES Final Result * (ABNORMAL) Lipid panel with reflex to direct LDL (02/03/2025 7:54 AM EDT) Cholesterol 203(H) 0 - 200 mg/dL LAB CHEMISTRY METHOD 02/03/2025 11:42 AM EDT [facility] Triglycerides 147 0 - 150 mg/dL LAB CHEMISTRY METHOD 02/03/2025 11:42 AM EDT [facility] HDL 43 >=40 mg/dL LAB CHEMISTRY METHOD 02/03/2025 11:42 AM EDT [facility] LDL Calculated 131(H) 0 - 100 mg/dL LAB CHEMISTRY METHOD 02/03/2025 11:42 AM EDT [facility] VLDL Cholesterol Jr 29.4 mg/dL LAB CHEMISTRY METHOD 02/03/2025 11:42 AM EDT [facility] Non HDL Chol. (LDL+VLDL) 160(H) <145 mg/dL LAB CHEMISTRY METHOD 02/03/2025 11:42 AM EDT [facility] Chol/HDL Ratio 4.7(H) 0.0 - 4.4 LAB CHEMISTRY METHOD 02/03/2025 11:42 AM EDT [facility] Blood Venous blood specimen / Unknown Venipuncture / Unknown 02/03/2025 7:54 AM EDT 02/03/2025 7:54 AM EDT us Bonifacio Matias MD LAB BLOOD ORDERABLES F inal Result Performing Organization Address City/[facility]/ZIP Co de Phone Number [facility] [address] [place] [address], [place] [phone] * Microalbumin creatinine urine ratio (02/03/2025 7:54 AM EDT) Creatinine, Urine 128.0 mg/dL LAB CHEMISTRY METHOD 02/03/2025 11:35 AM EDT [facility] Microalb, Ur 15.3 0.0 - 29.0 mg/L LAB CHEMISTRY METHOD 02/03/2025 11:35 AM EDT [facility] Microalb/Creat Ratio 12 <30 mg/g creat LAB CHEMISTRY METHOD 02/03/2025 11:35 AM EDT [facility] Urine Urine specimen obtained by clean catch procedure / Unknown Non-blood Collection / Unknown 02/03/2025 7:54 AM EDT 02/03/2025 7:54 AM EDT us Bonifacio Matias MD LAB URINE ORDERABLES F inal Result Performing Organization Address [facility]/ZIP Co de Phone Number [facility] [address] [place] [address], [place] [phone] * Diabetes Foot Exam (05/04/2024) Diabetes: Annual Foot Exam abstracted us Historical Provider HEALTH MAINTENANCE Final Result from Last 3 Months or Most Recently Relevant to Health Maintenance Insurance MEDICARE [place]ICAID [place] Care Teams Willow Machine Tender Relationship Specialty Start Date End Date Carlos Garber MD [address] [place] [address] PCP - General Internal Medicine 09/15/14
== END 2025-07-25 14:48 | disposition home or self-care (01) ==
LOC: HO.HMGAL 14:45
PROVIDERS: PCP Internal Medicine; Visit Provider Registered Nurse Emergency
DX: J30.89 Other allergic rhinitis (principal)
CPT/HCPCS: 95117; 95165

== ENCOUNTER 2025-08-01 13:28 | Outpatient (AMB) | payer MEDICARE, MEDICAID, SELFPAY ==
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
--- OUTSIDE RECORDS SUMMARY | 2025-08-01 18:42 | XMS_ITS | Clinical Summary ---
Author Organization [facility] [address] [place] [address] [place] [phone] Phone Care Team Providers Care Paid Search Specialist Name Role Phone Carlos Garber MD Primary Care Provider [phone] Allergies Active Allergy Reactions Criticality Noted Date [...] day. Patient buy OTC Active metFORMIN XR (GLUCOPHAGE-XR ) 500 mg 24 hr tablet TAKE 2 TABLETS(1000 MG) BY MOUTH 1 TIME EACH DAY WITH BREAKFAST. DO NOT CRUSH, CHEW, OR SPLIT 180 tablet 1 07/27/20 25 Active cholecalcifero l (VITAMIN D-3) 25 mcg (1,000 unit) tablet Take 1 tablet (1,000 Units total) by mouth 1 (one) time each day. 90 each 1 07/26/20 25 Active lisinopriL (PRINIVIL,ZEST RIL) 5 mg tablet Take 1 tablet (5 mg total) by mouth 1 (one) time each day. 30 each 5 07/26/20 25 026 Active metFORMIN XR (GLUCOPHAGE-XR ) 500 mg 24 hr tablet Take 2 tablets (1,000 mg total) by mouth 1 (one) time each day with breakfast. Do not crush, chew, or split. 180 each 01/20/20 025 Discontinued cholecalcifero l (VITAMIN D-3) 25 mcg (1,000 unit) tablet Take 1 tablet (1,000 Units total) by mouth 1 (one) time each day. 90 each 1 01/20/20 025 Discontinued(Re order) albuterol HFA (Proventil HFA) 90 mcg/actuation inhalerIndicat ions:Bronchiti s Inhale 2 puffs by mouth every 4 (four) hours if needed for wheezing or shortness of breath. 6.7 g 01/20/20 025 Discontinued Active Problems Problem Noted Date Diagnosed Date Type 2 diabetes mellitus wit hout complication ([facility] V24, [facility] V28) 03/30/2024 Hypercholesteremia 06/10/2023 Obesity (BMI 30-39.9) [...] rhinitis 02/18/2007 Speech disturbance 02/18/2007 Overview (10/27/2024): O update Encounters Date Type Department Care Team Description 07/26/2025 4:00 PM EDT Office Visit Adult [address] [phone] Angel Weber NP 07/05/2025 Telephone Adult [address] [phone] Carlos Garber MD 06/15/2025 10:00 AM EDT Office Visit Adult [address] [phone] Angel Weber NP Type 2 diabetes mellitus without complication, without long-term current use of insulin (CMS/HCC V24, CMS/HCC V28) (Primary Dx); Hypercholesteremia; TRINITY (obstructive sleep apnea); Need for hepatitis C screening test; Encounter for screening for cardiovascular disorders from Last 3 Months Immunizations Name Administration Dates Next Due DTP 07/18/1987, 3,1982,1981,1982 [id number] (Pentacel) 2mo to less than 5yo 05/18/1985 [...] 10/01/1993,1982 OPV 07/18/1987, 3,1982,1981 PPD Test 09/21/2014,05/30/1992,07/08/1986 [facility] SARS-CoV-2 COVID-19, mRNA, LNP-S, preservative free [...] Sign Reading Time Taken Comments Blood Pressure 122/90 07/26/2025 4:26 PM EDT Pulse 82 07/26/2025 3:59 PM EDT Temperature 36.4 C (97.5 F) 07/26/2025 3:59 PM EDT Respiratory Rate 14 07/26/2025 3:59 PM EDT Oxygen Saturation 98% 07/26/2025 3:59 PM EDT Inhaled Oxygen Concentration - - Weight 83.5 kg (184 lb) 07/26/2025 3:59 PM EDT Height 160 cm (5' 3 ) 07/26/2025 3:59 PM EDT Body Mass Index 32.59 07/26/2025 3:59 PM EDT Plan of Treatment Upcoming Encounters Date Type Department Care Team (Late st Contact Info) Description 08/29/2025 4:00 PM EDT Office Visit Adult [address] [phone] Angel Weber NP [address], [place] 12/19/2025 11:15 AM EST Office Visit Adult [address] [phone] Carlos Garber MD [address], [place] Health Maintenance Due Date Last Done Comments [...] Completed 05/18/1985, 05/18/1985 IPV Vaccines Completed 07/18/1987, 070 12/1984, 11/14/1983, Additional history exists MMR Vaccines [...] long-term current use of insulin ([facility] V24, [facility] V28) Mixed hyperlipidemia ALANINE AMINOTRANSFERASE Routine 06/15/2025 10:39 AM EDT Type 2 diabetes mellitus without complication, without long-term current use of insulin ([facility] V24, [facility] V28) Mixed hyperlipidemia BASIC METABOLIC PANEL Routine 06/15/2025 10:39 AM EDT Type 2 diabetes mellitus without complication, without long-term current use of insulin ([facility] V24, [facility] V28) Hypercholesteremia Gastroesophageal reflux disease without esophagitis TRINITY (obstructive sleep apnea) Encounter for screening for cardiovascular disorders Need for hepatitis C screening test HEMOGLOBIN A1C Routine 06/15/2025 10:39 AM EDT Type 2 diabetes mellitus without complication, without long-term current use of insulin ([facility] V24, CMS/HCC V28) Hypercholesteremia Gastroesophageal reflux disease without esophagitis TRINITY (obstructive sleep apnea) Encounter for screening for cardiovascular disorders Need for hepatitis C screening test THYROID STIMULATING HORMONE WITH REFLEX TO FREE T4 AND FREE T3 Routine 06/15/2025 10:39 AM EDT Type 2 diabetes mellitus without complication, without long-term current use of insulin ([facility]/HCC V24, [facility]/HCC V28) Hypercholesteremia Gastroesophageal reflux disease without esophagitis TRINITY (obstructive sleep apnea) Encounter for screening for cardiovascular disorders Need for hepatitis C screening test HEPATITIS C ANTIBODY Routine 06/15/2025 10:39 AM EDT Need for hepatitis C screening test POC GLUCOSE Routine 06/15/2025 10:24 AM EDT Type 2 diabetes mellitus without complication, without long-term current use of insulin ([facility] V24, [facility]/HCC V28) Hypercholesteremia TRINITY (obstructive sleep apnea) Encounter for screening for cardiovascular disorders Need for hepatitis C screening test MICROALBUMIN CREATININE URINE RATIO Routine 02/03/2025 7:54 AM EDT Type 2 diabetes mellitus with obesity ([facility]/HCC V24, [facility]/HCC V28) LIPID PANEL WITH REFLEX TO DIRECT LDL Routine 02/03/2025 7:54 AM EDT Type 2 diabetes mellitus with obesity ([facility]/HCC V24, [facility]/HCC V28) DIABETES FOOT EXAM Routine 05/04/2024 from Last 3 Months or Most Recently Relevant to Health Maintenance Results * Hepatitis C antibody (06/15/2025 10:39 AM EDT) Hepatitis C Antibody Negative Negative LAB CHEMISTRY METHOD 06/15/2025 2:19 PM EDT [facility] Blood Venous blood specimen / Unknown Venipuncture / Unknown 06/15/2025 10:39 AM EDT 06/15/2025 10:39 AM EDT Angel Weber FORECLOSURE FIELD INSPECTOR LAB BLOOD ORDERABLES Final R esult Performing Organization Address [facility]/ZIP Co de Phone Number [facility] [address] [place] [address], [place] [phone] * Thyroid stimulating hormone with reflex to free t4 and free t3 (06/15/2025 10:39 AM EDT) TSH 2.12 0.40 - 4.00 mcIU/mL LAB CHEMISTRY METHOD 06/15/2025 1:39 PM EDT [facility] Blood Venous blood specimen / Unknown Venipuncture / Unknown 06/15/2025 10:39 AM EDT 06/15/2025 10:39 AM EDT Angel Weber FORECLOSURE FIELD INSPECTOR LAB BLOOD ORDERABLES Final R esult Performing Organization Address [facility] Co de Phone Number [facility] [address] [place] [address], * Alanine aminotransferase (06/15/2025 10:39 AM EDT) ALT (SGPT) 32 10 - 60 unit/L LAB CHEMISTRY METHOD 06/15/2025 12:55 PM EDT [facility] Blood Venous blood specimen / Unknown Venipuncture / Unknown 06/15/2025 10:39 AM EDT 06/15/2025 10:39 AM EDT John Rowland PA LAB BLOOD ORDERABLES Fin al Result Performing Organization Address [facility]/ZIP Co de Phone Number [facility] [address] [place] [address], [place] [phone] * Aspartate aminotransferase (06/15/2025 10:39 AM EDT) AST (SGOT) 15 10 - 42 unit/L LAB CHEMISTRY METHOD 06/15/2025 12:55 PM EDT [facility] Blood Venous blood specimen / Unknown Venipuncture / Unknown 06/15/2025 10:39 AM EDT 06/15/2025 10:39 AM EDT John ALANIS LAB BLOOD ORDERABLES Fin al Result Performing Organization Address [facility] de Phone Number [facility] [address] [place] [address], [place] [phone] * Hemoglobin A1c (06/15/2025 10:39 AM EDT) Pathologist [facility] Hemoglobin A1C 6.0 <6.5 % LAB CHEMISTRY METHOD 06/15/2025 1:58 PM EDT [facility] Mean Bld Glu Estim. 126 mg/dL LAB CHEMISTRY METHOD 06/15/2025 1:58 PM EDT [facility] Blood Venous blood specimen / Unknown Venipuncture / Unknown 06/15/2025 10:39 AM EDT 06/15/2025 10:39 AM EDT Angel Weber FORECLOSURE FIELD INSPECTOR LAB BLOOD ORDERABLES Final R esult Performing Organization Address [facility] Co de Phone Number [facility] [address] [place] [address], [place] [phone] * (ABNORMAL) Basic metabolic panel (06/15/2025 10:39 AM EDT) [facility] Sodium 139 133 - 145 mmol/L LAB CHEMISTRY METHOD 06/15/2025 12:55 PM EDT [facility] Potassium 4.0 3.5 - 5.5 mmol/L LAB CHEMISTRY METHOD 06/15/2025 12:55 PM EDT [facility] Chloride 104 96 - 110 mmol/L LAB CHEMISTRY METHOD 06/15/2025 12:55 PM EDT [facility] CO2 30 21 - 32 mmol/L LAB CHEMISTRY METHOD 06/15/2025 12:55 PM EDT [facility] Anion Gap 5 3 - 11 LAB CHEMISTRY METHOD 06/15/2025 12:55 PM EDT [facility] Glucose 115(H) 70 - 100 mg/dL LAB CHEMISTRY METHOD 06/15/2025 12:55 PM EDT [facility] BUN 17 5 - 25 mg/dL LAB CHEMISTRY METHOD 06/15/2025 12:55 PM EDT [facility] Creatinine 0.91 0.70 - 1.30 mg/dL LAB CHEMISTRY METHOD 06/15/2025 12:55 PM EDT [facility] eGFR 107 >=60 mL/min/1. 73m2 LAB CHEMISTRY METHOD 06/15/2025 12:55 PM EDT [facility] Comment:Calculation based on the Chronic Kidney Disease Epidemiology Collaboration (CKD-EPI) equation refit without adjustment for race. BUN/Creatinine Ratio 18.7 LAB CHEMISTRY METHOD 06/15/2025 12:55 PM EDT [facility] Calcium 9.1 8.5 - 10.5 mg/dL LAB CHEMISTRY METHOD 06/15/2025 12:55 PM EDT [facility] Blood Venous blood specimen / Unknown Venipuncture / Unknown 06/15/2025 10:39 AM EDT 06/15/2025 10:39 AM EDT Angel Weber NP LAB BLOOD ORDERABLES Final R esult [facility] [address] [place] [address], * POC glucose manually resulted (06/15/2025 10:24 AM EDT) Glucose POC 128 mg/dL Blood Capillary blood specimen / Unknown 06/15/2025 10:24 AM EDT Dyana-Rosangela N Weber FORECLOSURE FIELD INSPECTOR POINT OF CARE TEST ENTER/VALERIE T ORDERABLES Final Result * (ABNORMAL) Lipid panel with reflex to direct LDL (02/03/2025 7:54 AM EDT) Cholesterol 203(H) 0 - 200 mg/dL LAB CHEMISTRY METHOD 02/03/2025 11:42 AM EDT [facility] Triglycerides 147 0 - 150 mg/dL LAB CHEMISTRY METHOD 02/03/2025 11:42 AM EDT [facility] HDL 43 >=40 mg/dL LAB CHEMISTRY METHOD 02/03/2025 11:42 AM EDT [facility] LDL Calculated 131(H) 0 - 100 mg/dL LAB CHEMISTRY METHOD 02/03/2025 11:42 AM EDT [facility] VLDL Cholesterol Jr 29.4 mg/dL LAB CHEMISTRY METHOD 02/03/2025 11:42 AM EDT [facility] Non HDL Chol. (LDL+VLDL) 160(H) <145 mg/dL LAB CHEMISTRY METHOD 02/03/2025 11:42 AM EDT [facility] Chol/HDL Ratio 4.7(H) 0.0 - 4.4 LAB CHEMISTRY METHOD 02/03/2025 11:42 AM T [facility] Blood Venous blood specimen / Unknown Venipuncture / Unknown 02/03/2025 7:54 AM EDT 02/03/2025 7:54 AM EDT us Bonifacio Matias MD LAB BLOOD ORDERABLES F inal Result [facility] [address] [place] [address], * Microalbumin creatinine urine ratio (02/03/2025 7:54 AM EDT) Creatinine, Urine 128.0 mg/dL LAB CHEMISTRY METHOD 02/03/2025 11:35 AM EDT [facility] Microalb, Ur 15.3 0.0 - 29.0 mg/L LAB CHEMISTRY METHOD 02/03/2025 11:35 AM EDT [facility] Microalb/Creat Ratio 12 <30 mg/g creat LAB CHEMISTRY METHOD 02/03/2025 11:35 AM EDT [facility] Urine Urine specimen obtained by clean catch procedure / Unknown Non-blood Collection / Unknown 02/03/2025 7:54 AM EDT 02/03/2025 7:54 AM EDT Bonifacio Matias MD LAB URINE ORDERABLES F inal Result [facility] [address] [place] [place] [address], [place] [phone] * Diabetes Foot Exam (05/04/2024) Pathologist [facility] Diabetes: Annual Foot Exam abstracted Historical Provider HEALTH MAINTENANCE Final Result from Last 3 Months or Most Recently Relevant to Health Maintenance Insurance MEDICARE [place]ICAID [place] Care Teams Paid Search Specialist Relationship Specialty Start Date End Date Carlos Garber MD [address] [place] [id number] PCP - General Internal Medicine 09/15/14
== END 2025-08-01 13:31 | disposition home or self-care (01) ==
LOC: HO.HMGAL 13:28
PROVIDERS: PCP Internal Medicine; Visit Provider Registered Nurse Emergency
DX: J30.89 Other allergic rhinitis (principal)
CPT/HCPCS: 95117; 95165

== ENCOUNTER 2025-08-08 14:53 | Outpatient (AMB) | payer MEDICARE, MEDICAID, SELFPAY ==
--- OUTSIDE RECORDS SUMMARY | 2025-08-08 17:24 | XMS_ITS ---
Clinical Summary Created on: August 08, 2025 Bart Mistry : 1980
== END 2025-08-08 14:54 | disposition home or self-care (01) ==
LOC: HO.HMGAL 14:53
PROVIDERS: PCP Internal Medicine; Visit Provider Registered Nurse Emergency
DX: J30.89 Other allergic rhinitis (principal)
CPT/HCPCS: 95117; 95165

== ENCOUNTER 2025-08-22 15:16 | Outpatient (AMB) | payer MEDICARE, MEDICAID, SELFPAY | END 2025-08-22 15:16 | disposition home or self-care (01) | LOC: HO.HMGAL 15:16 | PROVIDERS: PCP Internal Medicine; Visit Provider Registered Nurse Emergency | DX: J30.89 Other allergic rhinitis (principal) | CPT/HCPCS: 95117; 95165 ==

== ENCOUNTER 2025-08-31 14:52 | Outpatient (AMB) | payer MEDICARE, MEDICAID, SELFPAY ==
--- OUTSIDE RECORDS SUMMARY | 2025-08-31 18:33 | XMS_ITS | Data Portability ---
Author Organization [facility], [address] Address [address] [place] [address] Assessment No assessment recorded. Plan of Treatment Reminders Order Date Submit Date Provider Last Modified By Organization Details Last Modified Time Details Appointments None record ed. Lab None record ed. Referral None record ed. Procedures None record ed. Surgeries None record ed. Imaging None record ed. Medication Orders None record ed. Patient TargetsNo targets recorded. Patient InstructionsNo instructions recorded. Reason for Referral None Reported. Medical Equipment None Reported. Medications Name Sig Start Date Stop Date Status Note LastModified by Organization Details LastModified Time polymyxin B sulfate 10,000 unit-trimeth oprim 1 mg/mL eye drops active Not Available Not Available Not Available loratadine 10 mg tablet TAKE 1 TABLET BY MOUTH DAILY active Not Available Not Available No t Available Acid Controller 10 mg tablet TAKE 1 TABLET BY MOUTH TWICE DAILY active Not Available Not Available No t Available Vitals None Recorded Social History None recorded. Functional Status None recorded. Mental Status None recorded. Family History Nothing Reported. Medical History No medical history recorded. Past Encounters Encounter ID Performer Location Encounter Start Date Encounter Closed Date Diagnosis/Indication Diagnosis SNOMED-CT Code Diagnosis ICD10 Code Diagnosis IMO Codes Diagnosis Note [id number] [facility] [address] [place] [address] 06/03/2018 16:49:12 06/03/2018 17:52:38 [id number] [facility] [facility] [address] [place] [address] 08/10/2019 18:23:06 08/10/2019 19:13:36 [id number] [place] [address] 06/17/2019 19:40:07 06/17/2019 20:02:46 [id number] [place] [address] 05/05/2022 10:24:21 05/05/2022 10:56:53 [id number] [place] [address] 07/20/2019 17:20:55 07/20/2019 19:09:07 [id number] [place] [address] 06/21/2019 18:31:50 06/21/2019 19:24:58 [id number] [address] [place] [address] 12/24/2021 16:05:59 12/24/2021 17:23:08 Health Concerns Section Related Observation LastModified by Organization Detai ls LastModified Time None Recorded Concern Status LastModified by Organization Details LastModified Time None Recorded Advance Directives Directive None Recorded Payers Insurance Date Sequence Insurance Name Policy Number Policy Glover Covered Member ID Glover Member ID Guarantor Name 11/04/2022 1 [place]ICARE B-[place]: [employer] Bart Mistry [id number] Bart Mistry 11/04/2022 2 MEDICAID-[place] [facility] Bart Mistry [id number] Bart Mistry
== END 2025-08-31 14:52 | disposition home or self-care (01) ==
LOC: HO.HMGAL 14:52
PROVIDERS: PCP Internal Medicine; Visit Provider Registered Nurse Emergency
DX: J30.89 Other allergic rhinitis (principal)
CPT/HCPCS: 95117; 95165

== ENCOUNTER 2025-09-07 15:45 | Outpatient (AMB) | payer MEDICARE, MEDICAID, SELFPAY ==
--- OUTSIDE RECORDS SUMMARY | 2025-09-07 21:54 | XMS_ITS | Clinical Summary ---
Author Organization [facility] [address] [place] [address] [place] [phone] Phone Care Team Providers Care Egg Trayer Name Role Phone Carlos Garber MD Primary Care Provider Allergies Active Allergy Reactions Criticality Noted Date Comments Amoxicillin Hives High 01/27/2015 Other Anaphylaxis,Itching,Runny nose High 09/12 Seasonal Medications loratadine (Wal-itin) 10 mg tablet Take 1 tablet (10 mg total) by mouth 1 (one) time each day. Patient Buy OTC Active metFORMIN XR (GLUCOPHAGE-XR ) 500 [...] 1 07/26/20 25 Active lisinopriL (PRINIVIL,ZEST RIL) 10 mg tablet Take 1 tablet (10 mg total) by mouth 1 (one) time each day. 30 each 5 08/29/20 25 026 Active olopatadine (PATANOL) 0.1 % ophthalmic solution Administer 1 drop into both eyes 1 (one) time each day. Patient buy OTC 025 Discontinued lisinopriL (PRINIVIL,ZEST RIL) 5 mg tablet Take 1 tablet (5 mg total) by mouth 1 (one) time each day. 30 each 5 07/26/20 25 025 Discontinued Active Problems Problem Noted Date Diagnosed Date Type 2 diabetes mellitus without complication Overview (08/17/2025): 08/17/25 Regulatory IMO Update Hypercholesteremia 06/10/2023 Obesity (BMI 30-39.9) 04/09/2019 GERD [...] Encounters Date Type Department Care Team Description 08/29/2025 4:00 PM EDT Office Visit Adult Medicine [address] [phone] Angel Weber NP Uncontrolled hypertension (Primary Dx); Gastric reflux 07/26/2025 4:00 PM EDT Office Visit [address] [phone] Angel Weber NP Trisomy 21 syndrome (Primary Dx); Elevated blood pressure reading; Prediabetes; Allergic rhinitis, unspecified seasonality, unspecified trigger 07/05/2025 Telephone Adult Medicine [address] [phone] Carlos Garber MD 06/15/2025 10:00 AM EDT Office Visit [address] [phone] Angel Weber NP Type 2 diabetes mellitus without complication, without long-term current use of insulin (CMS/HCC V24, CMS/HCC V28) (Primary Dx); Hypercholesteremia; TRINITY (obstructive sleep apnea); Need for hepatitis C screening test; Encounter for screening for cardiovascular disorders from Last 3 Months Immunizations Immunization Administration Dates Next Due DTP 07/18/1987, 3,1982,1981,1982 [id number] (Pentacel) 2mo to less than 5yo 05/18/1985 [...] 10/01/1993,1982 OPV 07/18/1987, 3,1982,1981 PPD Test 09/21/2014,05/30/1992,07/08/1986 Pfizer SARS-CoV-2 COVID-19, mRNA, LNP-S, preservative free 12/20/2021 [...] Sign Reading Time Taken Comments Blood Pressure 122/92 08/29/2025 4:23 PM EDT Pulse 77 08/29/2025 3:57 PM EDT Temperature 36.4 C (97.5 F) 08/29/2025 3:57 PM EDT Respiratory Rate 14 07/26/2025 3:59 PM EDT Oxygen Saturation 96% 08/29/2025 3:57 PM EDT Inhaled Oxygen Concentration - - Weight 83.9 kg (185 lb) 08/29/2025 3:57 PM EDT Height 160 cm (5' 3 ) 08/29/2025 3:57 PM EDT Body Mass Index 32.77 08/29/2025 3:57 PM EDT Plan of Treatment Upcoming Encounters Date Type Department Care Team (Late st Contact Info) Description 09/26/2025 2:15 PM EST Office Visit Adult Medicine [address] [phone] Angel Weber NP [address] [place], [place] 12/19/2025 11:15 AM EST Office Visit Adult Medicine [address] [phone] Carlos Garber MD [address] [place], [place] Health Maintenance Due Date Last Done Comments HPV Vaccines (1 - 3-dose SCDM series) 2009 Social Influencers of Health Screening 10/26/2022 Medicare [...] 06/15/2026 06/15/2025, 02/03/2025, 09/13/2024, Additional history exists Hypertension/CHF/CAD Annual BMP Blood Test 06/15/2026 06/15/2025, 02/03/2025, 09/13/2024, Additional history exists DTaP,Tdap,and Td Vaccines (8 - Td or Tdap) 08/13/2027 08/13/2017, 02/18/2007, 07/18/1987, Additional history exists Cholesterol Screening (Lipid Panel) 02/03/2030 02/03/2025, 09/13/2024, 09/13/2024 RSV Immunization Adult Patients (1 - 1-dose 75+ series) 2057 HIB Vaccines Completed 05/18/1985, 05/18/1985 IPV Vaccines Completed 07/18/1987, 12/1984, 11/14/1983, Additional history exists MMR Vaccines Completed 10/01/1993, 1982 Hepatitis B Vaccines Completed 08/11/1998, 03/10/1998, 02/06/1998 COVID-19 Vaccine Discontinued 12/20/2021, 03/2021, 02/27/2021 Depression Screening Completed 06/15/2025 Hepatitis C Screening Completed 06/15/2025 HIV Screening Discontinued Hepatitis A Vaccines Aged Out No long [...] complication, without long-term current use of insulin ([facility] V24, [facility] V28) Mixed hyperlipidemia ALANINE AMINOTRANSFERASE Routine 06/15/2025 10:39 AM EDT Type 2 diabetes mellitus without complication, without long-term current use of insulin ([facility] V24, CMS/[facility] V28) Mixed hyperlipidemia BASIC METABOLIC PANEL Routine 06/15/2025 10:39 AM EDT Type 2 diabetes mellitus without complication, without long-term current use of insulin (CMS/[facility] V24, CMS/[facility] V28) Hypercholesteremia Gastroesophageal reflux disease without esophagitis TRINITY (obstructive sleep apnea) Encounter for screening for cardiovascular disorders Need for hepatitis C screening test HEMOGLOBIN A1C Routine 06/15/2025 10:39 AM EDT Type 2 diabetes mellitus without complication, without long-term current use of insulin ([facility]/HCC V24, CMS/HCC V28) Hypercholesteremia Gastroesophageal reflux disease without esophagitis TRINITY (obstructive sleep apnea) Encounter for screening for cardiovascular disorders Need for hepatitis C screening test THYROID STIMULATING HORMONE WITH REFLEX TO FREE T4 AND FREE T3 Routine 06/15/2025 10:39 AM EDT Type 2 diabetes mellitus without complication, without long-term current use of insulin ([facility] V24, CMS/[facility] V28) Hypercholesteremia Gastroesophageal reflux disease without esophagitis TRINITY (obstructive sleep apnea) Encounter for screening for cardiovascular disorders Need for hepatitis C screening test HEPATITIS C ANTIBODY Routine 06/15/2025 10:39 AM EDT Need for hepatitis C screening test POC GLUCOSE Routine 06/15/2025 10:24 AM EDT Type 2 diabetes mellitus without complication, without long-term current use of insulin ([facility] V24, CMS/[facility] V28) Hypercholesteremia TRINITY (obstructive sleep apnea) Encounter for screening for cardiovascular disorders Need for hepatitis C screening test MICROALBUMIN CREATININE URINE RATIO Routine 02/03/2025 7:54 AM EDT Type 2 diabetes mellitus with obesity ([facility] V24, CMS/[facility] V28) LIPID PANEL WITH REFLEX TO DIRECT LDL Routine 02/03/2025 7:54 AM EDT Type 2 diabetes mellitus with obesity ([facility] V24, CMS/[facility] V28) DIABETES FOOT EXAM Routine 05/04/2024 from Last 3 Months or Most Recently Relevant to Health Maintenance Results * Hepatitis C antibody (06/15/2025 10:39 AM EDT) Hepatitis C Antibody Negative Negative LAB CHEMISTRY METHOD 06/15/2025 2:19 PM EDT [facility] Blood Venous blood specimen / Unknown Venipuncture / Unknown 06/15/2025 10:39 AM EDT 06/15/2025 10:39 AM EDT Angel Weber [employer] LAB BLOOD ORDERABLES Final R esult Performing Organization Address City/[facility]/ZIP Co de Phone Number [facility] [address] [place] [address], [place] [phone] * Thyroid stimulating hormone with reflex to free t4 and free t3 (06/15/2025 10:39 AM EDT) TSH 2.12 0.40 - 4.00 mcIU/mL LAB CHEMISTRY METHOD 06/15/2025 1:39 PM EDT [facility] Blood Venous blood specimen / Unknown Venipuncture / Unknown 06/15/2025 10:39 AM EDT 06/15/2025 10:39 AM EDT Angel Weber [employer] LAB BLOOD ORDERABLES Final R esult Performing Organization Address [facility] Co de Phone Number [facility] [address] [place] [address], [place] [phone] * Alanine aminotransferase (06/15/2025 10:39 AM EDT) ALT (SGPT) 32 10 - 60 unit/L LAB CHEMISTRY METHOD 06/15/2025 12:55 PM EDT [facility] Blood Venous blood specimen / Unknown Venipuncture / Unknown 06/15/2025 10:39 AM EDT 06/15/2025 10:39 AM EDT John ALANIS LAB BLOOD ORDERABLES Fin al Result Performing Organization Address [facility]/ZIP Co de Phone Number [facility] [address] [place] [address], [place] [phone] * Aspartate aminotransferase (06/15/2025 10:39 AM EDT) AST (SGOT) 15 10 - 42 unit/L LAB CHEMISTRY METHOD 06/15/2025 12:55 PM EDT [facility] Blood Venous blood specimen / Unknown Venipuncture / Unknown 06/15/2025 10:39 AM EDT 06/15/2025 10:39 AM EDT John Rowland PA LAB BLOOD ORDERABLES Fin al Result Performing Organization Address [facility] de Phone Number [facility] [address] [place] [address], [place] [phone] * Hemoglobin A1c (06/15/2025 10:39 AM EDT) Hemoglobin A1C 6.0 <6.5 % LAB CHEMISTRY METHOD 06/15/2025 1:58 PM EDT [facility] Mean Bld Glu Estim. 126 mg/dL LAB CHEMISTRY METHOD 06/15/2025 1:58 PM EDT [facility] Blood Venous blood specimen / Unknown Venipuncture / Unknown 06/15/2025 10:39 AM EDT 06/15/2025 10:39 AM EDT Angel Weber NP LAB BLOOD ORDERABLES Final R esult Performing Organization Address [facility] de Phone Number [facility] [address] [place] [address], [place] [phone] * (ABNORMAL) Basic metabolic panel (06/15/2025 10:39 AM EDT) Sodium 139 133 - 145 mmol/L LAB CHEMISTRY METHOD 06/15/2025 12:55 PM EDT [facility] Potassium 4.0 3.5 - 5.5 mmol/L LAB CHEMISTRY METHOD 06/15/2025 12:55 PM EDT [facility] Chloride 104 96 - 110 mmol/L LAB CHEMISTRY METHOD 06/15/2025 12:55 PM [facility] CO2 30 21 - 32 mmol/L LAB CHEMISTRY METHOD 06/15/2025 12:55 PM [facility] Anion Gap 5 3 - 11 LAB CHEMISTRY METHOD 06/15/2025 12:55 PM [facility] Glucose 115(H) 70 - 100 mg/dL LAB CHEMISTRY METHOD 06/15/2025 12:55 PM [facility] BUN 17 5 - 25 mg/dL LAB CHEMISTRY METHOD 06/15/2025 12:55 PM [facility] Creatinine 0.91 0.70 - 1.30 mg/dL LAB CHEMISTRY METHOD 06/15/2025 12:55 PM [facility] eGFR 107 >=60 mL/min/1. 73m2 LAB CHEMISTRY METHOD 06/15/2025 12:55 PM [facility] Comment:Calculation based on the Chronic Kidney Disease Epidemiology Collaboration (CKD-EPI) equation refit without adjustment for race. BUN/Creatinine Ratio 18.7 LAB CHEMISTRY METHOD 06/15/2025 12:55 PM [facility] Calcium 9.1 8.5 - 10.5 mg/dL LAB CHEMISTRY METHOD 06/15/2025 12:55 PM [facility] Blood Venous blood specimen / Unknown Venipuncture / Unknown 06/15/2025 10:39 AM EDT 06/15/2025 10:39 AM EDT us Angel Weber [employer] LAB BLOOD ORDERABLES Final R esult [facility] [address] [place] [address], * POC glucose manually resulted (06/15/2025 10:24 AM EDT) Glucose POC 128 mg/dL Blood Capillary blood specimen / Unknown 06/15/2025 10:24 AM EDT Angel Weber [employer] POINT OF CARE TEST ENTER/VALERIE T ORDERABLES Final Result * (ABNORMAL) Lipid panel with reflex to direct LDL (02/03/2025 7:54 AM EDT) Cholesterol 203(H) 0 - 200 mg/dL LAB CHEMISTRY METHOD 02/03/2025 11:42 AM EDT [facility] Triglycerides 147 0 - 150 mg/dL LAB CHEMISTRY METHOD 02/03/2025 11:42 AM EDT [facility] HDL 43 >=40 mg/dL LAB CHEMISTRY METHOD 02/03/2025 11:42 AM EDT [facility] LDL Calculated 131(H) 0 - 100 mg/dL LAB CHEMISTRY METHOD 02/03/2025 11:42 AM EDT [facility] VLDL Cholesterol Jr 29.4 mg/dL LAB CHEMISTRY METHOD 02/03/2025 11:42 AM EDT [facility] Non HDL Chol. (LDL+VLDL) 160(H) <145 mg/dL LAB CHEMISTRY METHOD 02/03/2025 11:42 AM EDT [facility] Chol/HDL Ratio 4.7(H) 0.0 - 4.4 LAB CHEMISTRY METHOD 02/03/2025 11:42 AM EDT [facility] Blood Venous blood specimen / Unknown Venipuncture / Unknown 02/03/2025 7:54 AM EDT 02/03/2025 7:54 AM EDT Bonifacio Matias MD LAB BLOOD ORDERABLES F inal Result [facility] [address] [place] [address], [place] [phone] * Microalbumin creatinine urine ratio (02/03/2025 7:54 AM EDT) Creatinine, Urine 128.0 mg/dL LAB CHEMISTRY METHOD 02/03/2025 11:35 AM EDT [facility] Microalb, Ur 15.3 0.0 - 29.0 mg/L LAB CHEMISTRY METHOD 02/03/2025 11:35 AM EDT [facility] Microalb/Creat Ratio 12 <30 mg/g creat LAB CHEMISTRY METHOD 02/03/2025 11:35 AM EDT [facility] Urine Urine specimen obtained by clean catch procedure / Unknown Non-blood Collection / Unknown 02/03/2025 7:54 AM EDT 02/03/2025 7:54 AM EDT Bonifacio Matias MD LAB URINE ORDERABLES F inal Result [facility] [address] [place] [address], * Diabetes Foot Exam (05/04/2024) Pathologist [facility] Diabetes: Annual Foot Exam abstracted Historical Provider HEALTH MAINTENANCE Final Result from Last 3 Months or Most Recently Relevant to Health Maintenance Insurance MEDICARE MEDICAID [place] Care Teams Egg Trayer Relationship Specialty Start Date End Date Carlos Garber MD [address] [place] [address] PCP - General Internal Medicine 09/15/14
--- OUTSIDE RECORDS SUMMARY | 2025-09-07 21:54 | XMS_ITS | Data Portability ---
Author Organization [facility], [address] Address [address] [place] [address] Assessment No assessment recorded. Plan of Treatment [...] ICD10 Code Diagnosis IMO Codes Diagnosis Note [id number] [facility] [facility] [address] [place] [phone] 06/03/2018 16:49:12 06/03/2018 17:52:38 [id number] [facility] [address] [facility] [address] [place] [address] 08/10/2019 18:23:06 08/10/2019 19:13:36 [id number] [address] [place] [address] 06/17/2019 19:40:07 06/17/2019 20:02:46 [id number] [address] [place] [address] 05/05/2022 10:24:21 05/05/2022 10:56:53 [id number] [address] [place] [address] 07/20/2019 17:20:55 07/20/2019 19:09:07 [id number] [address] [place] [address] 06/21/2019 18:31:50 06/21/2019 19:24:58 [id number] [address] [place] [phone] 12/24/2021 16:05:59 12/24/2021 17:23:08 Health Concerns Section Related Observation LastModified by Organization Detai ls LastModified Time None Recorded Concern Status LastModified by Organization Details LastModified Time None Recorded Advance Directives Directive None Recorded Payers Insurance Date Sequence Insurance Name Policy Number Policy Glover Covered Member ID Glover Member ID Guarantor Name 11/04/2022 1 [place] [employer] Bart Mistry [id number] Bart Mistry 11/04/2022 2 [place] [facility] Bart Mistry [id number] Bart Mistry
== END 2025-09-07 15:47 | disposition home or self-care (01) ==
LOC: HO.HMGAL 15:45
PROVIDERS: PCP Internal Medicine; Visit Provider Registered Nurse Emergency
DX: J30.89 Other allergic rhinitis (principal)
CPT/HCPCS: 95117; 95165

== ENCOUNTER 2025-09-14 14:58 | Outpatient (AMB) | payer MEDICARE, MEDICAID, SELFPAY ==
--- OUTSIDE RECORDS SUMMARY | 2025-09-14 19:27 | XMS_ITS | Data Portability ---
Author Organization [facility], [address] Address [address] [place] [address] Assessment No assessment recorded. Plan of Treatment [...] ICD10 Code Diagnosis IMO Codes Diagnosis Note [id number] [facility] [address] [address] [place] [address] 06/03/2018 16:49:12 06/03/2018 17:52:38 [id number] [facility] [facility] [address] [place] [address] 08/10/2019 18:23:06 08/10/2019 19:13:36 [id number] [address] [place] [address] 06/17/2019 19:40:07 06/17/2019 20:02:46 [id number] [address] [place] [address] 05/05/2022 10:24:21 05/05/2022 10:56:53 [id number] [address] [place] [address] 07/20/2019 17:20:55 07/20/2019 19:09:07 [id number] [address] [place] [address] 06/21/2019 18:31:50 06/21/2019 19:24:58 [id number] [address] [place] [address] 12/24/2021 16:05:59 12/24/2021 17:23:08 Health Concerns Section Related Observation LastModified by Organization Detai ls LastModified Time None Recorded Concern Status LastModified by Organization Details LastModified Time None Recorded Advance Directives Directive None Recorded Payers Insurance Date Sequence Insurance Name Policy Number Policy Glover Covered Member ID Glover Member ID Guarantor Name 11/04/2022 1 [place] [employer] Bart Mistry [id number] Bart Mistry 11/04/2022 2 [place] [facility] Bart Mistry [id number] Bart Mistry
--- OUTSIDE RECORDS SUMMARY | 2025-09-14 19:27 | XMS_ITS | Clinical Summary ---
Author Organization [facility] [address] [place] [address] [place] [phone] Phone Care Team Providers Care Pharmacy Clinical Specialist Name Role Phone Carlos Garber MD Primary Care Provider [phone] Allergies Active Allergy Reactions Criticality Noted Date [...] 4:00 PM EDT Office Visit Adult Medicine [address] [phone] Angel Weber NP Uncontrolled hypertension (Primary Dx); Gastric reflux 07/26/2025 4:00 PM EDT Office Visit [address] [phone] Angel Weber NP Trisomy 21 syndrome (Primary Dx); Elevated blood pressure reading; Prediabetes; Allergic rhinitis, unspecified seasonality, unspecified trigger 07/05/2025 Telephone Adult Medicine [address] [phone] Carlos Garber MD 06/15/2025 10:00 AM EDT Office Visit [address] [phone] Angel Weber NP Type 2 diabetes mellitus without complication, without long-term current use of insulin (CMS/HCC V24, CMS/HCC V28) (Primary Dx); Hypercholesteremia; TRINITY (obstructive sleep apnea); Need for hepatitis C screening test; Encounter for screening for cardiovascular disorders from Last 3 Months Immunizations Immunization Administration Dates Next Due DTP 07/18/1987, 3,1982,1981,1982 [id number] (Pentacel) 2mo to less than 5yo 05/18/1985 [...] 2:15 PM EST Office Visit Adult Medicine [address] [phone] Angel Weber NP [address] [place], [place] 12/19/2025 11:15 AM EST Office Visit Adult Medicine [address] [phone] Calros Garber MD [address] [place], [place] Health Maintenance Due Date Last Done [...] complication, without long-term current use of insulin ([facility] V24, [facility] V28) Mixed hyperlipidemia ALANINE AMINOTRANSFERASE Routine 06/15/2025 10:39 AM EDT Type 2 diabetes mellitus without complication, without long-term current use of insulin ([facility] V24, CMS/[facility] V28) Mixed hyperlipidemia BASIC METABOLIC PANEL Routine 06/15/2025 10:39 AM EDT Type 2 diabetes mellitus without complication, without long-term current use of insulin (CMS/[facility] V24, CMS/[facility] V28) Hypercholesteremia Gastroesophageal reflux disease without esophagitis TRINITY (obstructive sleep apnea) Encounter for screening for cardiovascular disorders Need for hepatitis C screening test HEMOGLOBIN A1C Routine 06/15/2025 10:39 AM EDT Type 2 diabetes mellitus without complication, without long-term current use of insulin ([facility]/HCC V24, CMS/HCC V28) Hypercholesteremia Gastroesophageal reflux disease without esophagitis TRINITY (obstructive sleep apnea) Encounter for screening for cardiovascular disorders Need for hepatitis C screening test THYROID STIMULATING HORMONE WITH REFLEX TO FREE T4 AND FREE T3 Routine 06/15/2025 10:39 AM EDT Type 2 diabetes mellitus without complication, without long-term current use of insulin ([facility] V24, [facility] V28) Hypercholesteremia Gastroesophageal reflux disease without esophagitis TRINITY (obstructive sleep apnea) Encounter for screening for cardiovascular disorders Need for hepatitis C screening test HEPATITIS C ANTIBODY Routine 06/15/2025 10:39 AM EDT Need for hepatitis C screening test POC GLUCOSE Routine 06/15/2025 10:24 AM EDT Type 2 diabetes mellitus without complication, without long-term current use of insulin ([facility] V24, [facility] V28) Hypercholesteremia TRINITY (obstructive sleep apnea) Encounter for screening for cardiovascular disorders Need for hepatitis C screening test MICROALBUMIN CREATININE URINE RATIO Routine 02/03/2025 7:54 AM EDT Type 2 diabetes mellitus with obesity ([facility] V24, CMS/[facility] V28) LIPID PANEL WITH REFLEX TO DIRECT LDL Routine 02/03/2025 7:54 AM EDT Type 2 diabetes mellitus with obesity ([facility] V24, CMS/[facility] V28) DIABETES FOOT EXAM Routine 05/04/2024 from Last 3 Months or Most Recently Relevant to Health Maintenance Results * Hepatitis C antibody (06/15/2025 10:39 AM EDT) Hepatitis C Antibody Negative Negative LAB CHEMISTRY METHOD 06/15/2025 2:[address] [facility] Blood Venous blood specimen / Unknown Venipuncture / Unknown 06/15/2025 10:39 AM EDT 06/15/2025 10:39 AM EDT Angel Weber MARKETING DESIGNER LAB BLOOD ORDERABLES Final R esult Performing Organization Address City/[facility]/ZIP Co de Phone Number [facility] [address] [place] [address], [place] [phone] * Thyroid stimulating hormone with reflex to free t4 and free t3 (06/15/2025 10:39 AM EDT) TSH 2.12 0.40 - 4.00 mcIU/mL LAB CHEMISTRY METHOD 06/15/2025 1:39 PM EDT [facility] Blood Venous blood specimen / Unknown Venipuncture / Unknown 06/15/2025 10:39 AM EDT 06/15/2025 10:39 AM EDT Angel Weber MARKETING DESIGNER LAB BLOOD ORDERABLES Final R esult Performing Organization Address [facility] Co de Phone Number [facility] [address] [place] [address], [place] [phone] * Alanine aminotransferase (06/15/2025 10:39 AM EDT) ALT (SGPT) 32 10 - 60 unit/L LAB CHEMISTRY METHOD 06/15/2025 12:55 PM EDT [facility] Blood Venous blood specimen / Unknown Venipuncture / Unknown 06/15/2025 10:39 AM EDT 06/15/2025 10:39 AM EDT John ALANIS LAB BLOOD ORDERABLES Fin al Result Performing Organization Address [facility]/ZIP Co de Phone Number [facility] [address] [place] [address], [place] [phone] * Aspartate aminotransferase (06/15/2025 10:39 AM EDT) AST (SGOT) 15 10 - 42 unit/L LAB CHEMISTRY METHOD 06/15/2025 12:55 PM EDT [facility] Blood Venous blood specimen / Unknown Venipuncture / Unknown 06/15/2025 10:39 AM EDT 06/15/2025 10:39 AM EDT John Rowland PA LAB BLOOD ORDERABLES Fin al Result Performing Organization Address [facility] de Phone Number [facility] [address] [place] [address], [place] [phone] * Hemoglobin A1c (06/15/2025 10:39 AM EDT) [...] ORDERABLES Final R esult Performing Organization Address [facility] de Phone Number [facility] [address] [place] [address], [place] [phone] * (ABNORMAL) Basic metabolic panel (06/15/2025 10:39 AM EDT) Sodium 139 133 - 145 mmol/L LAB CHEMISTRY METHOD 06/15/2025 12:55 PM EDT [facility] Potassium 4.0 3.5 - 5.5 mmol/L LAB CHEMISTRY METHOD 06/15/2025 12:55 PM EDT [facility] Chloride 104 96 - 110 mmol/L LAB CHEMISTRY METHOD 06/15/2025 12:55 PM [facility] CO2 30 21 - 32 mmol/L LAB CHEMISTRY METHOD 06/15/2025 12:55 PM [facility] Anion Gap 5 3 - 11 LAB CHEMISTRY METHOD 06/15/2025 12:55 PM [facility] Glucose 115(H) 70 - 100 mg/dL LAB CHEMISTRY METHOD 06/15/2025 12:55 PM [facility] BUN 17 5 - 25 mg/dL LAB CHEMISTRY METHOD 06/15/2025 12:55 PM [facility] Creatinine 0.91 0.70 - 1.30 mg/dL LAB CHEMISTRY METHOD 06/15/2025 12:55 PM [facility] eGFR 107 >=60 mL/min/1. 73m2 LAB CHEMISTRY METHOD 06/15/2025 12:55 PM [facility] Comment:Calculation based on the Chronic Kidney Disease Epidemiology Collaboration (CKD-EPI) equation refit without adjustment for race. BUN/Creatinine Ratio 18.7 LAB CHEMISTRY METHOD 06/15/2025 12:55 PM [facility] Calcium 9.1 8.5 - 10.5 mg/dL LAB CHEMISTRY METHOD 06/15/2025 12:55 PM [facility] Blood Venous blood specimen / Unknown Venipuncture / Unknown 06/15/2025 10:39 AM EDT 06/15/2025 10:39 AM EDT us Angel Weber MARKETING DESIGNER LAB BLOOD ORDERABLES Final R esult [facility] [address] [place] [address], * POC glucose manually resulted (06/15/2025 10:24 AM EDT) Glucose POC 128 mg/dL Blood Capillary blood specimen / Unknown 06/15/2025 10:24 AM EDT Angel Weber MARKETING DESIGNER POINT OF CARE TEST ENTER/VALERIE T ORDERABLES [...] MD LAB BLOOD ORDERABLES F inal Result [facility] [address] [place] [address], [place] [phone] * Microalbumin creatinine urine ratio (02/03/2025 7:54 [...] MD LAB URINE ORDERABLES F inal Result [facility] [address] [place] [address], * Diabetes Foot Exam (05/04/2024) Pathologist [facility] Diabetes: Annual Foot Exam abstracted Historical Provider HEALTH MAINTENANCE Final Result from Last 3 Months or Most Recently Relevant to Health Maintenance Insurance MEDICARE MEDICAID [place] Q[place] Care Teams Pharmacy Clinical Specialist Relationship Specialty Start Date End Date Carlos Garber MD [address] [place] [address] PCP - General Internal Medicine 09/15/14
== END 2025-09-14 14:59 | disposition home or self-care (01) ==
LOC: HO.HMGAL 14:58
PROVIDERS: PCP Internal Medicine; Visit Provider Registered Nurse Emergency
DX: J30.89 Other allergic rhinitis (principal)
CPT/HCPCS: 95117; 95165

== ENCOUNTER 2025-09-21 14:55 | Outpatient (AMB) | payer MEDICARE, MEDICAID, SELFPAY ==
--- OUTSIDE RECORDS SUMMARY | 2025-09-21 18:01 | XMS_ITS | Data Portability ---
Author Organization [facility], [id number] Address [address] [place] [address] Assessment No assessment recorded. Plan of Treatment [...] ICD10 Code Diagnosis IMO Codes Diagnosis Note [id number] [facility] [address] [place] [phone] 06/03/2018 16:49:12 06/03/2018 17:52:38 [id number] [facility] [address] [place] [address] 08/10/2019 18:23:06 08/10/2019 19:13:36 [id number] [address] [place] [address] 06/17/2019 19:40:07 06/17/2019 20:02:46 [id number] [address] [address] [address] [place] [address] 05/05/2022 10:24:21 05/05/2022 10:56:53 [id number] [address] [address] [address] [place] [address] 07/20/2019 17:20:55 07/20/2019 19:09:07 [id number] [address] [address] [place] [address] 06/21/2019 18:31:50 06/21/2019 19:24:58 [id number] [address] [address] [place] [address] 12/24/2021 16:05:59 12/24/2021 17:23:08 Health Concerns Section Related Observation LastModified by Organization Detai ls LastModified Time None Recorded Concern Status LastModified by Organization Details LastModified Time None Recorded Advance Directives Directive None Recorded Payers Insurance Date Sequence Insurance Name Policy Number Policy Glover Covered Member ID Glover Member ID Guarantor Name 11/04/2022 1 [place]ICARE B[place] [employer] Bart Mistry [id number] Bart Mistry 11/04/2022 2 [place] [facility] Bart Mistry [id number] Bart Mistry
--- OUTSIDE RECORDS SUMMARY | 2025-09-21 18:01 | XMS_ITS | Clinical Summary ---
Author Organization [facility] [address] [place] [address] [place] [phone] Phone Care Team Providers Care Compliance Intern Name Role Phone Carlos Garber MD Primary Care Provider [phone] Allergies Active Allergy Reactions Criticality Noted Date [...] 4:00 PM EDT Office Visit Adult Medicine [address] [phone] Angel Weber NP Uncontrolled hypertension (Primary Dx); Gastric reflux 07/26/2025 4:00 PM EDT Office Visit [address] [phone] Angel Weber NP Trisomy 21 syndrome (Primary Dx); Elevated blood pressure reading; Prediabetes; Allergic rhinitis, unspecified seasonality, unspecified trigger 07/05/2025 Telephone Adult Medicine [address] [phone] Carlos Garber MD from Last 3 Months Immunizations Immunization Administration Dates Next Due DTP 07/18/1987, 3,1982,1981,1982 [id number] (Pentacel) 2mo to less than 5yo 05/18/1985 [...] 10/01/1993,1982 OPV 07/18/1987, 3,1982,1981 PPD Test 09/21/2014,05/30/1992,07/08/1986 Embedly SARS-CoV-2 COVID-19, mRNA, LNP-S, preservative free 12/20/2021 [...] 2:15 PM EST Office Visit Adult Medicine [address] [phone] Angel Weber NP [address] [place], [place] 12/19/2025 11:15 AM EST Office Visit Adult Medicine [address] [phone] Carlos Garber MD [address] [place] [address] Health Maintenance Due Date Last Done Comments [...] Procedure Name Priority Date/Time Associated Diagnosis Comments HEPATITIS C ANTIBODY Routine 06/15/2025 10:39 AM EDT Need for hepatitis C screening test BASIC METABOLIC PANEL Routine 06/15/2025 10:39 AM EDT Type 2 diabetes mellitus without complication, without long-term current use of insulin ([facility]/HCC V24, CMS/HCC V28) Hypercholesteremia Gastroesophageal reflux disease without esophagitis TRINITY (obstructive sleep apnea) Encounter for screening for cardiovascular disorders Need for hepatitis C screening test HEMOGLOBIN A1C Routine 06/15/2025 10:39 AM EDT Type 2 diabetes mellitus without complication, without long-term current use of insulin (CMS/HCC V24, CMS/HCC V28) Hypercholesteremia Gastroesophageal reflux disease without esophagitis TRINITY (obstructive sleep apnea) Encounter for screening for cardiovascular disorders Need for hepatitis C screening test MICROALBUMIN CREATININE URINE RATIO Routine 02/03/2025 7:54 AM EDT Type 2 diabetes mellitus with obesity (CMS/HCC V24, CMS/HCC V28) LIPID PANEL WITH REFLEX TO DIRECT LDL Routine 02/03/2025 7:54 AM EDT Type 2 diabetes mellitus with obesity (CMS/HCC V24, CMS/HCC V28) HM DIABETES FOOT EXAM Routine 05/04/2024 from Last 3 Months or Most Recently Relevant to Health Maintenance Results * Hepatitis C antibody (06/15/2025 10:39 AM EDT) [facility] Hepatitis C Antibody Negative Negative LAB CHEMISTRY METHOD 06/15/2025 2:19 PM EDT [facility] Blood Venous blood specimen / Unknown Venipuncture / Unknown 06/15/2025 10:39 AM EDT 06/15/2025 10:39 AM EDT Angel Weber VENEER CLIPPER LAB BLOOD ORDERABLES Final R esult [facility] [address] [place] [address], [place] [phone] * Hemoglobin A1c (06/15/2025 10:39 AM EDT) [facility] Hemoglobin A1C 6.0 <6.5 % LAB CHEMISTRY METHOD 06/15/2025 1:58 PM EDT [facility] Mean Bld Glu Estim. 126 mg/dL LAB CHEMISTRY METHOD 06/15/2025 1:58 PM EDT [facility] Blood Venous blood specimen / Unknown Venipuncture / Unknown 06/15/2025 10:39 AM EDT 06/15/2025 10:39 AM EDT Angel Weber VENEER CLIPPER LAB BLOOD ORDERABLES Final R esult [facility] [address] [place] [address], [place] [phone] * (ABNORMAL) Basic metabolic panel (06/15/2025 10:39 AM EDT) [facility] Sodium 139 133 - 145 mmol/L LAB CHEMISTRY METHOD 06/15/2025 12:55 PM EDT [facility] Potassium 4.0 3.5 - 5.5 mmol/L LAB CHEMISTRY METHOD 06/15/2025 12:[address] [facility] Chloride 104 96 - 110 mmol/L LAB CHEMISTRY METHOD 06/15/2025 12:[address] [facility] CO2 30 21 - 32 mmol/L LAB CHEMISTRY METHOD 06/15/2025 12:[address] [facility] Anion Gap 5 3 - 11 LAB CHEMISTRY METHOD 06/15/2025 12:[address] [facility] Glucose 115(H) 70 - 100 mg/dL LAB CHEMISTRY METHOD 06/15/2025 12:[address] [facility] BUN 17 5 - 25 mg/dL LAB CHEMISTRY METHOD 06/15/2025 12:[address] [facility] Creatinine 0.91 0.70 - 1.30 mg/dL LAB CHEMISTRY METHOD 06/15/2025 12:[address] [facility] eGFR 107 >=60 mL/min/1. 73m2 LAB CHEMISTRY METHOD 06/15/2025 12:[address] [facility] Comment:Calculation based on the Chronic Kidney Disease Epidemiology Collaboration (CKD-EPI) equation refit without adjustment for race. BUN/Creatinine Ratio 18.7 LAB CHEMISTRY METHOD 06/15/2025 12:[address] [facility] Calcium 9.1 8.5 - 10.5 mg/dL LAB CHEMISTRY METHOD 06/15/2025 12:[address] [facility] Blood Venous blood specimen / Unknown Venipuncture / Unknown 06/15/2025 10:39 AM EDT 06/15/2025 10:39 AM EDT us Angel Weber NP LAB BLOOD ORDERABLES Final R esult [facility] [address] [place] [address], * (ABNORMAL) Lipid panel with reflex to direct LDL (02/03/2025 7:54 AM EDT) Cholesterol 203(H) 0 - 200 mg/dL LAB CHEMISTRY METHOD 02/03/2025 11:42 AM EDT [facility] Triglycerides 147 0 - 150 mg/dL LAB CHEMISTRY METHOD 02/03/2025 11:42 AM EDT [facility] HDL 43 >=40 mg/dL LAB CHEMISTRY METHOD 02/03/2025 11:42 AM EDT [facility] LDL Calculated 131(H) 0 - 100 mg/dL LAB CHEMISTRY METHOD 02/03/2025 [facility] VLDL Cholesterol Jr 29.4 mg/dL LAB CHEMISTRY METHOD 02/03/2025 11:[address] [facility] Non HDL Chol. (LDL+VLDL) 160(H) <145 mg/dL LAB CHEMISTRY METHOD 02/03/2025 11:[address] [facility] Chol/HDL Ratio 4.7(H) 0.0 - 4.4 LAB CHEMISTRY METHOD 02/03/2025 11:[address] [facility] Blood Venous blood specimen / Unknown Venipuncture / Unknown 02/03/2025 7:54 AM EDT 02/03/2025 7:54 AM EDT Bonifacio Matias MD LAB BLOOD ORDERABLES F inal Result [facility] [address] [place] [address], * Microalbumin creatinine urine ratio (02/03/2025 7:54 AM EDT) Creatinine, Urine 128.0 mg/dL LAB CHEMISTRY METHOD 02/03/2025 11:35 AM EDT [facility] Microalb, Ur 15.3 0.0 - 29.0 mg/L LAB CHEMISTRY METHOD 02/03/2025 11:35 AM EDT [facility] Microalb/Creat Ratio 12 <30 mg/g creat LAB CHEMISTRY METHOD 02/03/2025 11:35 AM EDT [facility] Urine Urine specimen obtained by clean catch procedure / Unknown Non-blood Collection / Unknown 02/03/2025 7:54 AM EDT 02/03/2025 7:54 AM EDT Bonifacio Matias MD LAB URINE ORDERABLES F inal Result [facility] [address] [place] [address], [place] [phone] * Diabetes Foot Exam (05/04/2024) Pathologist [facility] Diabetes: Annual Foot Exam abstracted Historical Provider HEALTH MAINTENANCE Final Result from Last 3 Months or Most Recently Relevant to Health Maintenance Insurance MEDICARE MEDICAID [place] Care Teams Compliance Intern Relationship Specialty Start Date End Date Carlos Garber MD [address] [place] [phone] PCP - General Internal Medicine 09/15/14
== END 2025-09-21 14:57 | disposition home or self-care (01) ==
LOC: HO.HMGAL 14:55
PROVIDERS: PCP Internal Medicine; Visit Provider Registered Nurse Emergency
DX: J30.89 Other allergic rhinitis (principal)
CPT/HCPCS: 95117; 95165

== ENCOUNTER 2025-09-28 15:43 | Outpatient (AMB) | payer MEDICARE, MEDICAID, SELFPAY ==
--- OUTSIDE RECORDS SUMMARY | 2025-09-26 14:15 | XMS_ITS | Encounter Summary ---
Author Organization [facility] Address [address] [place] [address] Care Team Providers Care System Validation Engineer Name Role Phone Carlos Garber MD Primary Care Provider [phone] Reason for Visit * Reason Comments Follow-up Follow up for BP Encounter Details Date Type Department Care Team (Late st Contact Info) Description 09/26/2025 2:15 PM EST Office Visit Adult Medicine [facility] [address] [place] [phone] Angel Weber NP [address] [place] [phone] Primary hypertension (Primary Dx); Prediabetes; Hypercholesteremia; Encounter for screening for cardiovascular disorders Social History Tobacco Use Types Packs/Day Years [...] on file documented as of this encounter Last Filed Vital Signs Vital Sign Reading Time Taken Comments Blood Pressure 126/72 09/26/2025 2:22 PM EST Pulse 79 09/26/2025 2:22 PM EST Temperature 36.3 C (97.4 F) 09/26/2025 2:22 PM EST Respiratory Rate - - Oxygen Saturation 98% 09/26/2025 2:22 PM EST Inhaled Oxygen Concentration - - Weight 83.9 kg (185 lb) 09/26/2025 2:22 PM EST Height 160 cm (5' 3 ) 09/26/2025 2:22 PM EST Body Mass Index 32.77 09/26/2025 2:22 PM EST documented in this encounter Progress Notes * Angel Weber NP - 09/26/2025 2:15 PM EST Images from the original note were not included. Patient Education High Blood Pressure: Care Instructions Overview It's normal for blood pressure to go up and down throughout the day. But if it stays up, you have high blood pressure. Another name for high blood pressure is hypertension. For diagnosis, the top number may be 130 to 140 or higher. The bottom number may be 80 to 90 or higher. Despite what a lot of people think, high blood pressure usually doesn't cause headaches or make youfeel dizzy or lightheaded. It usually has no symptoms. But it does increase your risk of stroke, heart attack, and other problems. You and your doctor will talk about your risks of these problems based on your blood pressure. Your doctor will give you a goal for your blood pressure. Your goal will be based on your health and your age. Lifestyle changes, such as eating healthy and being active, are always important to help lower blood pressure. You might also take medicine to reach your blood pressure goal. Follow-up care is a allan part of your treatment and safety. Be sure to make and go to all appointments, and call your doctor if you are having problems. It's also a good idea to know your test resultsand keep a list of the medicines you take. How can you care for yourself at home? Medical treatment If you stop taking your medicine, your blood pressure will go back up. You may take one or more types of medicine to lower your blood pressure. Be safe with medicines. Take your medicine exactly as prescribed. Call your doctor if you think you are having a problem with your medicine. See your doctor regularly. You may need to see the doctor more often at first or until your blood pressure comes down. If you are taking blood pressure medicine, talk to your doctor before you take decongestants or anti-inflammatory medicine, such as ibuprofen. Some of these medicines can raise blood pressure. Learn how to check your blood pressure at home. Talk to your doctor before you start taking aspirin every day. Aspirin can help certain people lower their risk of a heart attack or stroke. But taking aspirin isn't right for everyone, because it can cause serious bleeding. Lifestyle changes Stay at a weight that's healthy for you. This is especially important if you put on weight around the waist. Losing even 10 pounds can help you lower your blood pressure. If your doctor recommends it, get more exercise. Walking is a good choice. Bit by bit, increase theamount you walk every day. Try for at least 30 minutes on most days of the week. Avoid or limit alcohol. Talk to your doctor about whether you can drink any alcohol. Try to limit how much sodium you eat to less than 2,300 milligrams (mg) a day. Your doctor may ask you to try to eat less than 1,500 mg a day. Eat plenty of fruits (such as bananas and oranges), vegetables, legumes, whole grains, and low-fat dairy products. Lower the amount of saturated fat in your diet. Saturated fat is found in animal products such as milk, cheese, and meat. Limiting these foods may help you lose weight and also lower your risk for heart disease. Do not smoke or vape. Smoking or vaping increases your risk for heart attack and stroke. If you need help quitting, talk to your doctor about quit programs and medicines. These can increase your chances of quitting for good. When should you call for help? Call 911 anytime you think you may need emergency care. This may mean having symptoms that suggest your blood pressure is causing a serious heart or blood vessel problem. Your blood pressure may be 180/120 or higher. For example, call 911 if: You have symptoms of a heart attack. These may include: Chest pain or pressure, or a strange feeling in the chest. Sweating. Shortness of breath. Nausea or vomiting. Pain, pressure, or a strange feeling in the back, neck, jaw, or upper belly or in one or both shoulders or arms. Lightheadedness or sudden weakness. A fast or irregular heartbeat. NOTE: After calling 911, the pellet preparation operator may tell you to chew 1 adult-strength or 2 to 4 low-dose aspirin. Wait for an ambulance. Do not try to drive yourself. You have symptoms of a stroke. These may include: Sudden numbness, tingling, weakness, or loss of movement in your face, arm, or leg, especially on only one side of your body. Sudden vision changes. Sudden trouble speaking. Sudden confusion or trouble understanding simple statements. Sudden problems with walking or balance. A sudden, severe headache that is different from past headaches. You have severe back or belly pain. Do not wait until your blood pressure comes down on its own. Get help right away. Call your doctor now or seek immediate care if: Your blood pressure is much higher than normal (such as 180/120 or higher), but you don't have symptoms. You think high blood pressure is causing symptoms, such as: Severe headache. Blurry vision. Watch closely for changes in your health, and be sure to contact your doctor if: Your blood pressure measures higher than your doctor recommends at least 2 times. That means the top number is higher or the bottom number is higher, or both. You think you may be having side effects from your blood pressure medicine. Where can you learn more? Scan the [place] [employer] code or Go to https://www.HerBabyShower.[employer].com/crowchart Enter X567 in the search box to learn more about High Blood Pressure: Care Instructions. Current as of: June 16, 2024 Content Version: 14.6 ?? 9672-0235 [employer]. Care instructions adapted under license by your healthcare professional. If you have questions about a medical condition or this instruction, always ask your healthcare professional. [employer], disclaims any warranty or liability for your use of this information. Patient Education DASH Diet: Care Instructions Your Care Instructions The DASH diet is an eating plan that can help lower your blood pressure. DASH stands for Dietary Approaches to Stop Hypertension. Hypertension is high blood pressure. The DASH diet focuses on eating foods that are high in calcium, potassium, and magnesium. These nutrients can lower blood pressure. The foods that are highest in these nutrients are fruits, vegetables, low-fat dairy products, nuts, seeds, and legumes. But taking calcium, potassium, and magnesium supplements instead of eating foods that are high in those nutrients does not have the same effect. The DASH diet also includes whole grains, fish, and poultry. The DASH diet is one of several lifestyle changes your doctor may recommend to lower your high blood pressure. Your doctor may also want you to decrease the amount of sodium in your diet. Lowering sodium while following the DASH diet can lower blood pressure even further than just the DASH diet alone. Follow-up care is a allan part of your treatment and safety. Be sure to make and go to all appointments, and call your doctor if you are having problems. It's also a good idea to know your test resultsand keep a list of the medicines you take. How can you care for yourself at home? Following the DASH diet Eat 4 to 5 servings of fruit each day. A serving is 1 medium-sized piece of fruit, 1/2 cup raw or canned fruit, 1/4 cup dried fruit, or 4 ounces (1/2 cup) of fruit juice. Choose fruit more often thanfruit juice. Eat 4 to 5 servings of vegetables each day. A serving is 1 cup of lettuce or raw leafy vegetables, 1/2 cup of chopped or cooked vegetables, or 4 ounces (1/2 cup) of vegetable juice. Choose vegetablesmore often than vegetable juice. Get 2 to 3 servings of low-fat and fat-free dairy each day. A serving is 8 ounces of milk, 1 cup ofyogurt, or 1?? ounces of cheese. Eat 6 to 8 servings of grains each day. A serving is 1 slice of bread, 1 ounce of dry cereal, or 1/2 cup of cooked rice, pasta, or cooked cereal. Try to choose whole-grain products as much as possible. Limit lean meat, poultry, and fish to 6 ounces or less each day. One egg counts as 1 ounce. Eat 4 to 5 servings of nuts, seeds, and legumes (cooked dried beans, lentils, and split peas) each week. A serving is 1/3 cup of nuts, 2 tablespoons of seeds, 2 tablespoons of peanut butter, or 1/2 cup of cooked beans or peas. Limit fats and oils to 2 to 3 servings each day. A serving is 1 teaspoon of vegetable oil or 2 tablespoons of salad dressing. Limit sweets and added sugars to 5 servings or less a week. A serving is 1 tablespoon jelly or jam,1/2 cup sorbet, or 1 cup of lemonade. Eat less than 2,300 milligrams (mg) of sodium a day. If you limit your sodium to 1,500 mg a day, you can lower your blood pressure even more. Be aware that all of these are the suggested number of servings for people who eat 1,800 to 2,000 calories a day. Your recommended number of servings may be different if you need more or fewer calories. Tips for success Start small. Make small changes, and stick with them. Once those changes become habit, add a few more changes. Try some of the following: Make it a goal to eat a fruit or vegetable at every meal and at snacks. This will make it easy to get the recommended amount of fruits and vegetables each day. Try yogurt topped with fruit and nuts for a snack or healthy dessert. Add lettuce, tomato, cucumber, and onion to sandwiches. Have a variety of cut-up vegetables with a low-fat dip as an appetizer instead of chips and dip. Sprinkle sunflower seeds or chopped almonds over salads. Or try adding chopped walnuts or almonds to cooked vegetables. Try some vegetarian meals using beans and peas. Add garbanzo or kidney beans to salads. Make burritos and tacos with mashed chicas beans or black beans. Where can you learn more? Scan the QR code or Go to https://www.HerBabyShower.net/crowchart Enter H967 in the search box to learn more about DASH Diet: Care Instructions. Current as of: August 23, 2024 Content Version: 14.6 ?? 4453-3173 [employer]. Care instructions adapted under license by your healthcare professional. If you have questions about a medical condition or this instruction, always ask your healthcare professional. [employer], disclaims any warranty or liability for your use of this information. * Angel Weber NP - 09/26/2025 2:15 PM EST PATIENT'S PCP: Carlos Garber MD LAST VISIT IN THIS DEPARTMENT: 08/29/2025 Ana Mistry is a 45 y.o. (: 1980) male who presents today for: Chief Complaint Patient presents with Follow-up Follow up for BP SUBJECTIVE History of Present Illness The patient is a 45-year-old male who presents for a follow-up of high blood pressure. He is accompanied by his mother. The patient's mother reports that he has been faring well with his blood pressure management. Bloodpressure has been stable since starting lisinopril 10 mg. He does not experience any chest pain, shortness of breath, or edema. He has been engaging in physical activity, as evidenced by his ability to walk from his place of employment to his residence last week. Review Of System Review of Systems Constitutional: Negative. Respiratory: Negative. Cardiovascular: Negative. Gastrointestinal: Negative. Endocrine: Negative. Genitourinary: Negative. Musculoskeletal: Negative. Skin: Negative. Neurological: Negative. Hematological: Negative. The following portions of the patient's chart were reviewed in this encounter and updated as appropriate: OBJECTIVE Vitals: 09/26/25 1422 BP: 126/72 Pulse: 79 Temp: 36.3 ??C (97.4 ??F) TempSrc: Temporal SpO2: 98% Weight: 83.9 kg (185 lb) Height: 1.6 m (63 ) BP Readings from Last 5 Encounters: 09/26/25 126/72 08/29/25 (!) 122/92 07/26/25 (!) 122/90 06/15/25 112/80 02/14/25 118/84 Body mass index is 32.77 kg/m??. BMI is greater than 25.0 (above the normal range) - see Plan Wt Readings from Last 5 Encounters: 09/26/25 83.9 kg (185 lb) 08/29/25 83.9 kg (185 lb) 07/26/25 83.5 kg (184 lb) 06/15/25 82.1 kg (181 lb) 02/14/25 84 kg (185 lb 3.2 oz) Allergies[1] Active Medication: Current Outpatient Medications Medication Instructions cholecalciferol (VITAMIN D-3) 1,000 Units, oral, Daily lisinopriL (PRINIVIL,ZESTRIL) 10 mg, oral, Daily loratadine (Wal-itin) 10 mg tablet Take 1 tablet (10 mg total) by mouth 1 (one) time each day. Patient Buy OTC metFORMIN XR (GLUCOPHAGE-XR) 500 mg 24 hr tablet TAKE 2 TABLETS(1000 MG) BY MOUTH 1 TIME EACH DAY WITH BREAKFAST. DO NOT CRUSH, CHEW, OR SPLIT Physical Exam Imaging No Pertinent Imaging Laboratory: CBC: No results found for: WBC , HGB , HCT , MCV , PLT CMP: Lab Results Component Value Date NA 139 06/15/2025 K 4.0 06/15/2025 CL 104 06/15/2025 CO2 30 06/15/2025 GLUCOSE 115 (H) 06/15/2025 BUN 17 06/15/2025 CREATININE 0.91 06/15/2025 CALCIUM 9.1 06/15/2025 PROT 7.4 02/03/2025 ALBUMIN 4.3 02/03/2025 BILITOT 0.9 02/03/2025 AST 15 06/15/2025 ALT 32 06/15/2025 ALKPHOS 76 02/03/2025 EGFR 107 06/15/2025 A1c/Microalbuminuria/LDL/GFR: Lab Results Component Value Date HGBA1C 6.0 06/15/2025 HGBA1C 6.6 (H) 02/03/2025 HGBA1C 7.1 (A) 09/13/2024 Lab Results Component Value Date MICROALBUR 15.3 02/03/2025 LDLCALC 131 (H) 02/03/2025 CREATININE 0.91 06/15/2025 MICROALBCREA 12 02/03/2025 Lipids: Lab Results Component Value Date CHOL 203 (H) 02/03/2025 TRIG 147 02/03/2025 HDL 43 02/03/2025 LDLCALC 131 (H) 02/03/2025 VLDL 29.4 02/03/2025 NONHDLC 160 (H) 02/03/2025 CHOLHDL 4.7 (H) 02/03/2025 TSH: Lab Results Component Value Date TSH 2.12 06/15/2025 PSA: No results found for: PSA Lab Results Component Value Date LDLCALC 131 (H) 02/03/2025 1. Primary hypertension 2. Prediabetes 3. Hypercholesteremia 4. Encounter for screening for cardiovascular disorders Assessment & Plan 1. Hypertension: - Blood pressure has shown improvement since the last visit on 08/29/2025, when the dosage of lisinopril was increased from 5 mg to 10 mg. - Today's reading is 126/72. - Blood work will be conducted prior to the next appointment. - Continue with the current regimen of lisinopril 10 mg daily. - Maintain a low-salt diet. - Increase physical activity as tolerated. 2. Prediabetes: -Last A1c was 6.03 months ago. - A1c levels will be reassessed during the next visit. - Monitor carbohydrate intake. 3. Hypercholesterolemia: - Cholesterol levels are currently elevated. - A follow-up cholesterol check is scheduled for 01/2026. - If there is no improvement, the initiation of statin therapy may be considered. - Continue with dietary modifications, including reducing salt, carbohydrate, and fat intake. Follow-up: - The patient will follow up in 3 to 4 months. Patient understands the plan and is in agreement with the plan. FOLLOW-UP: Follow up in about 4 months (around 01/24/2026). Angel Weber NP ADULT [address] I have obtained verbal consent from Ana Mistry prior to the recording. I have advised Ana Mistry that he may refuse the recording and require the recording to be turned off at any time during this encounter. Today's documentation was made using voice recognition software.This note may contain grammatical errors secondary to this software. [1] Allergies Allergen Reactions Amoxicillin Hives Other Anaphylaxis, Itching and Runny nose Seasonal documented in this encounter Plan of Treatment Upcoming Encounters Date Type Department Care Team (Late st Contact Info) Description 12/19/2025 11:15 AM EST Office Visit Adult [address] [phone] Carlos Garber MD [address] [place] [address] 01/24/2026 3:00 PM EDT Office Visit Adult Medicine [facility] [address], [place] [phone] Angel Weber NP [address], [place] Scheduled Orders Name Type Priority Associated Diagnoses Orde r Schedule Basic metabolic panel Lab Routine Prediabetes Primary hypertension Hypercholesteremia Encounter for screening for cardiovascular disorders Expected: 12/27/2025, Expires: 09/26/2026 Hemoglobin A1c Lab Routine Prediabetes Primary hypertension Hypercholesteremia Encounter for screening for cardiovascular disorders Expected: 09/26/2025, Expires: 03/26/2026 Lipid panel with reflex to direct LDL Lab Routine Prediabetes Primary hypertension Hypercholesteremia Encounter for screening for cardiovascular disorders 1 Occurrences starting 09/26/2025 until 09/26/2026 documented as of this encounter Visit Diagnoses Diagnosis Primary hypertension- Primary Unspecified essential hypertension Prediabetes Other abnormal glucose Hypercholesteremia Pure hypercholesterolemia Encounter for screening for cardiovascular disorders documented in this encounter Additional Health Concerns Assessment Noted Time PHQ-9 Depression Total Score: 0 06/15/20 25 10:00 AM EDT documented as of this encounter Care Teams System Validation Engineer Relationship Specialty Start Date End Date Carlos Garber MD [address], [place] PCP - General Internal Medicine 09/15/14 documented as of this encounter
--- OUTSIDE RECORDS SUMMARY | 2025-09-28 18:47 | XMS_ITS | Clinical Summary ---
Author Organization [facility] [address] [place] [address] [place] [phone] Phone Care Team Providers Care International Specialist Name Role Phone Carlos Garber MD Primary Care Provider [phone] Allergies Active Allergy Reactions Criticality Noted Date Comments Amoxicillin Hives High 01/27/2015 Other Anaphylaxis,Itching,Runny nose High 09/12 Seasonal Medications loratadine (Wal-itin) 10 mg tablet Take 1 tablet (10 mg total) by mouth 1 (one) time each day. Patient Buy OTC Active metFORMIN XR (GLUCOPHAGE-XR) 500 mg 24 hr tablet TAKE 2 TABLETS(1000 MG) BY MOUTH 1 TIME EACH DAY WITH BREAKFAST. DO NOT CRUSH, CHEW, OR SPLIT 180 tablet 1 07/27/2025 Active cholecalciferol (VITAMIN D-3) 25 mcg (1,000 unit) tablet Take 1 tablet (1,000 Units total) by mouth 1 (one) time each day. 90 each 1 07/26/2025 Active lisinopriL (PRINIVIL,ZESTR IL) 10 mg tablet Take 1 tablet (10 mg total) by mouth 1 (one) time each day. 30 each 5 08/29/2025 Active Active Problems Problem Noted Date Diagnosed Date Primary hypertension 09/26/2025 Prediabetes 09/26/2025 Type 2 diabetes mellitus without complication Overview [...] Encounters Date Type Department Care Team Description 09/26/2025 2:15 PM EST Office Visit [address] [phone] Angel Weber NP Primary hypertension (Primary Dx); Prediabetes; Hypercholesteremia; Encounter for screening for cardiovascular disorders 08/29/2025 4:00 PM EDT Office Visit [address] [phone] Angel Weber NP Uncontrolled hypertension (Primary Dx); Gastric reflux 07/26/2025 4:00 PM EDT Office Visit [address] [phone] Angel Weber NP Trisomy 21 syndrome (Primary Dx); Elevated blood pressure reading; Prediabetes; Allergic rhinitis, unspecified seasonality, unspecified trigger 07/05/2025 Telephone Adult Medicine [address] [phone] Carlos Garber MD from Last 3 Months Immunizations Immunization Administration Dates Next Due DTP 07/18/1987, 3,1982,1981,1982 [id number] (Pentacel) 2mo to less than 5yo 05/18/1985 [...] 10/01/1993,1982 OPV 07/18/1987, 3,1982,1981 PPD Test 09/21/2014,05/30/1992,07/08/1986 [employer] SARS-CoV-2 COVID-19, mRNA, LNP-S, preservative free 12/20/2021 [...] F) 09/26/2025 2:22 PM EST Respiratory Rate 14 07/26/2025 3:59 PM EDT Oxygen Saturation 98% 09/26/2025 2:22 PM EST Inhaled Oxygen Concentration - - Weight 83.9 kg (185 lb) 09/26/2025 2:22 PM EST Height 160 cm (5' 3 ) 09/26/2025 2:22 PM EST Body Mass Index 32.77 09/26/2025 2:22 PM EST Plan of Treatment Upcoming Encounters Date Type Department Care Team (Late st Contact Info) Description 12/19/2025 11:15 AM EST Office Visit Adult [address] [phone] Carlos Garber MD [address] [place] [address] 01/24/2026 3:00 PM EDT Office Visit [address] [phone] Angel Weber NP [address] [place] [phone] Health Maintenance Due Date Last Done Comments [...] complication, without long-term current use of insulin ([facility] V24, [facility] V28) Hypercholesteremia Gastroesophageal reflux disease without esophagitis TRINITY (obstructive sleep apnea) Encounter for screening for cardiovascular disorders Need for hepatitis C screening test HEMOGLOBIN A1C Routine 06/15/2025 10:39 AM EDT Type 2 diabetes mellitus without complication, without long-term current use of insulin ([facility] V24, [facility] V28) Hypercholesteremia Gastroesophageal reflux disease without esophagitis TRINITY (obstructive sleep apnea) Encounter for screening for cardiovascular disorders Need for hepatitis C screening test MICROALBUMIN CREATININE URINE RATIO Routine 02/03/2025 7:54 AM EDT Type 2 diabetes mellitus with obesity ([facility] V24, [facility] V28) LIPID PANEL WITH REFLEX TO DIRECT LDL Routine 02/03/2025 7:54 AM EDT Type 2 diabetes mellitus with obesity ([facility] V24, [facility] V28) HM DIABETES FOOT EXAM Routine 05/04/2024 from Last 3 Months or Most Recently Relevant to Health Maintenance Results * Hepatitis C antibody (06/15/2025 10:39 AM EDT) [facility] Hepatitis C Antibody Negative Negative LAB CHEMISTRY METHOD 06/15/2025 2:19 PM EDT [facility] Blood Venous blood specimen / Unknown Venipuncture / Unknown 06/15/2025 10:39 AM EDT 06/15/2025 10:39 AM EDT Angel Weber BOX TOE CEMENTER LAB BLOOD ORDERABLES Final R esult Performing Organization Address City/[facility]/ZIP Co de Phone Number [facility] [address] [place] [address], [place] [phone] * Hemoglobin A1c (06/15/2025 10:39 AM EDT) [facility] Hemoglobin A1C 6.0 <6.5 % LAB CHEMISTRY METHOD 06/15/2025 1:58 PM EDT [facility] Mean Bld Glu Estim. 126 mg/dL LAB CHEMISTRY METHOD 06/15/2025 1:58 PM EDT [facility] Blood Venous blood specimen / Unknown Venipuncture / Unknown 06/15/2025 10:39 AM EDT 06/15/2025 10:39 AM EDT Angel Weber BOX TOE CEMENTER LAB BLOOD ORDERABLES Final R esult Performing Organization Address City/[facility]/ZIP Co de Phone Number [facility] [address] [place] [address], [place] [phone] * (ABNORMAL) Basic metabolic panel (06/15/2025 10:39 AM EDT) [facility] Sodium 139 133 - 145 mmol/L LAB CHEMISTRY METHOD 06/15/2025 12:55 PM EDT [facility] Potassium 4.0 3.5 - 5.5 mmol/L LAB CHEMISTRY METHOD 06/15[facility]2025 [facility] Chloride 104 96 - 110 mmol/L LAB CHEMISTRY METHOD 06/15/2025 12:[address] [facility] CO2 30 21 - 32 mmol/L LAB CHEMISTRY METHOD 06/15/2025 12:[address] [facility] Anion Gap 5 3 - 11 LAB CHEMISTRY METHOD 06/15/2025 12:[address] [facility] Glucose 115(H) 70 - 100 mg/dL LAB CHEMISTRY METHOD 06/15/2025 12:[address] [facility] BUN 17 5 - 25 mg/dL LAB CHEMISTRY METHOD 06/15/2025 12:[address] [facility] Creatinine 0.91 0.70 - 1.30 mg/dL LAB CHEMISTRY METHOD 06/15/2025 12:[address] [facility] eGFR 107 >=60 mL/min/1. 73m2 LAB CHEMISTRY METHOD 06/15/2025 12:[address] [facility] Comment:Calculation based on the Chronic Kidney Disease Epidemiology Collaboration (CKD-EPI) equation refit without adjustment for race. BUN/Creatinine Ratio 18.7 LAB CHEMISTRY METHOD 06/15/2025 12:[address] [facility] Calcium 9.1 8.5 - 10.5 mg/dL LAB CHEMISTRY METHOD 06/15/2025 12:[address] [facility] Blood Venous blood specimen / Unknown Venipuncture / Unknown 06/15/2025 10:39 AM EDT 06/15/2025 10:39 AM EDT us Angel Weber NP LAB BLOOD ORDERABLES Final R esult [facility] [address] [place] [address], * (ABNORMAL) Lipid panel with reflex to direct LDL (02/03/2025 7:54 AM EDT) Cholesterol 203(H) 0 - 200 mg/dL LAB CHEMISTRY METHOD 02/03/2025 11:42 AM EDT [facility] Triglycerides 147 0 - 150 mg/dL LAB CHEMISTRY METHOD 02/03/2025 11:42 AM EDT [facility] HDL 43 >=40 mg/dL LAB CHEMISTRY METHOD 02/03/2025 11:42 AM EDT [facility] LDL Calculated 131(H) 0 - 100 mg/dL LAB CHEMISTRY METHOD 02/03/2025 11:42 AM EDT [facility] VLDL Cholesterol Jr 29.4 mg/dL LAB CHEMISTRY METHOD 02/03/2025 11:[address] [facility] Non HDL Chol. (LDL+VLDL) 160(H) <145 mg/dL LAB CHEMISTRY METHOD 02/03/2025 11:42 AM EDT [facility] Chol/HDL Ratio 4.7(H) 0.0 - 4.4 LAB CHEMISTRY METHOD 02/03/2025 11:42 AM T [facility] Blood Venous blood specimen / Unknown Venipuncture / Unknown 02/03/2025 7:54 AM EDT 02/03/2025 7:54 AM EDT Bonifacio Matias MD LAB BLOOD ORDERABLES F inal Result [facility] [address] [place] [address], * Microalbumin creatinine urine ratio (02/03/2025 7:54 AM EDT) Creatinine, Urine 128.0 mg/dL LAB CHEMISTRY METHOD 02/03/2025 11:35 AM EDT [facility] Microalb, Ur 15.3 0.0 - 29.0 mg/L LAB CHEMISTRY METHOD 02/03/2025 11:35 AM EDT [facility] Microalb/Creat Ratio 12 <30 mg/g creat LAB CHEMISTRY METHOD 02/03/2025 11:35 AM EDT [facility] Urine Urine specimen obtained by clean catch procedure / Unknown Non-blood Collection / Unknown 02/03/2025 7:54 AM EDT 02/03/2025 7:54 AM EDT Bonifacio Matias MD LAB URINE ORDERABLES F inal Result [facility] [address] [place] [address], * Diabetes Foot Exam (05/04/2024) [facility] Diabetes: Annual Foot Exam abstracted Historical Provider HEALTH MAINTENANCE Final Result from Last 3 Months or Most Recently Relevant to Health Maintenance Insurance MEDICARE MEDICAID [place] Care Teams International Specialist Relationship Specialty Start Date End Date Carlos Garber MD [address] [place] [id number] PCP - General Internal Medicine 09/15/14
--- OUTSIDE RECORDS SUMMARY | 2025-09-28 18:47 | XMS_ITS | Data Portability ---
Author Organization [facility], [address] Address [address] [place] [address] Assessment No assessment recorded. Plan of Treatment [...] ICD10 Code Diagnosis IMO Codes Diagnosis Note [id number] [facility] [place] [address] 06/03/2018 16:49:12 06/03/2018 17:52:38 [id number] [facility] [facility] [address] [place] [address] 08/10/2019 18:23:06 08/10/2019 19:13:36 [id number] [address] [place] [address] 06/17/2019 19:40:07 06/17/2019 20:02:46 [id number] [address] [place] [address] 05/05/2022 10:24:21 05/05/2022 10:56:53 [id number] [address] [place] [address] 07/20/2019 17:20:55 07/20/2019 19:09:07 [id number] [address] [place] [address] 06/21/2019 18:31:50 06/21/2019 19:24:58 [id number] [address] [place] [address] 12/24/2021 16:05:59 12/24/2021 17:23:08 Health Concerns Section Related Observation LastModified by Organization Detai ls LastModified Time None Recorded Concern Status LastModified by Organization Details LastModified Time None Recorded Advance Directives Directive None Recorded Payers Insurance Date Sequence Insurance Name Policy Number Policy Glover Covered Member ID Glover Member ID Guarantor Name 11/04/2022 1 [place] [email or web address] Bart Mistry [id number] Bart Mistry 11/04/2022 2 [place] [facility] Bart Mistry [id number] Bart Mistry
== END 2025-09-28 15:46 | disposition home or self-care (01) ==
LOC: HO.HMGAL 15:43
PROVIDERS: PCP Internal Medicine; Visit Provider Registered Nurse Emergency
DX: J30.89 Other allergic rhinitis (principal)
CPT/HCPCS: 95117; 95165

== ENCOUNTER 2025-10-03 11:29 | Outpatient (AMB) | payer MEDICARE, MEDICAID, SELFPAY ==
--- OUTSIDE RECORDS SUMMARY | 2025-10-03 23:47 | XMS_ITS | Data Portability ---
Author Organization [facility], [address] Address [address] [place] [address] Assessment No assessment recorded. Plan of Treatment [...] ICD10 Code Diagnosis IMO Codes Diagnosis Note [id number] [facility] [facility] [address] [place] [address] 06/03/2018 16:49:12 06/03/2018 17:52:38 [id number] [address] [facility] [address] [place] [address] 08/10/2019 18:23:06 08/10/2019 19:13:36 [id number] [address] [place] [address] 06/17/2019 19:40:07 06/17/2019 20:02:46 [id number] [address] [place] [address] 05/05/2022 10:24:21 05/05/2022 10:56:53 [id number] [address] [place] [address] 07/20/2019 17:20:55 07/20/2019 19:09:07 [id number] [address] [place] [address] 06/21/2019 18:31:50 06/21/2019 19:24:58 [id number] [address] [place] [address] 12/24/2021 16:05:59 12/24/2021 17:23:08 Health Concerns Section Related Observation LastModified by Organization Detai ls LastModified Time None Recorded Concern Status LastModified by Organization Details LastModified Time None Recorded Advance Directives Directive None Recorded Payers Insurance Date Sequence Insurance Name Policy Number Policy Glover Covered Member ID Glover Member ID Guarantor Name 11/04/2022 1 [place]: [employer] Bart Mistry [id number] Bart Mistry 11/04/2022 2 [place] [facility] Bart Mistry [id number] Bart Mistry
== END 2025-10-03 11:30 | disposition home or self-care (01) ==
LOC: HO.HMGAL 11:29
PROVIDERS: PCP Internal Medicine; Visit Provider Registered Nurse Emergency
DX: J30.89 Other allergic rhinitis (principal)
CPT/HCPCS: 95117; 95165

== ENCOUNTER 2025-10-10 15:29 | Outpatient (AMB) | payer MEDICARE, MEDICAID, SELFPAY ==
--- OUTSIDE RECORDS SUMMARY | 2025-10-10 20:05 | XMS_ITS | Clinical Summary ---
Author Organization [facility] [address] [place] [address] [place] [phone] Phone Care Team Providers Care Gallery Or Museum Attendant Name Role Phone Carlos Garber MD Primary Care Provider [phone] Allergies Active Allergy Reactions Criticality Noted Date [...] Description 09/26/2025 2:15 PM EST Office Visit [address] [phone] Angel Weber NP Primary hypertension (Primary Dx); Prediabetes; Hypercholesteremia; Encounter for screening for cardiovascular disorders 08/29/2025 4:00 PM EDT Office Visit [address] [phone] Angel Weber NP Uncontrolled hypertension (Primary Dx); Gastric reflux 07/26/2025 4:00 PM EDT Office Visit [address] [phone] Angel Weber NP Trisomy 21 syndrome (Primary Dx); Elevated blood pressure reading; Prediabetes; Allergic rhinitis, unspecified seasonality, unspecified trigger from Last 3 Months Immunizations Immunization Administration Dates Next Due DTP 07/18/1987, 3,1982,1981,1982 [id number] (Pentacel) 2mo to less than 5yo 05/18/1985 [...] 10/01/1993,1982 OPV 07/18/1987, 3,1982,1981 PPD Test 09/21/2014,05/30/1992,07/08/1986 [employer] SARS-CoV-2 COVID-19, mRNA, LNP-S, preservative free 12/20/2021 [...] 11:15 AM EST Office Visit Adult Medicine [address] [phone] Carlos Garber MD [address] [place], [place] 01/24/2026 3:00 PM EDT Office Visit [address] [phone] Angel Weber NP [address] [place], [place] Health Maintenance Due Date Last Done [...] complication, without long-term current use of insulin ([facility] V24, [facility] V28) Hypercholesteremia Gastroesophageal reflux disease without esophagitis TRINITY (obstructive sleep apnea) Encounter for screening for cardiovascular disorders Need for hepatitis C screening test HEMOGLOBIN A1C Routine 06/15/2025 10:39 AM EDT Type 2 diabetes mellitus without complication, without long-term current use of insulin ([facility] V24, [facility] V28) Hypercholesteremia Gastroesophageal reflux disease without esophagitis TRINITY (obstructive sleep apnea) Encounter for screening for cardiovascular disorders Need for hepatitis C screening test MICROALBUMIN CREATININE URINE RATIO Routine 02/03/2025 7:54 AM EDT Type 2 diabetes mellitus with obesity ([facility] V24, [facility] V28) LIPID PANEL WITH REFLEX TO DIRECT LDL Routine 02/03/2025 7:54 AM EDT Type 2 diabetes mellitus with obesity ([facility] V24, [facility] V28) HM DIABETES FOOT EXAM Routine 05/04/2024 from Last 3 Months or Most Recently Relevant to Health Maintenance Results * Hepatitis C antibody (06/15/2025 10:39 AM EDT) Hepatitis C Antibody Negative Negative LAB CHEMISTRY METHOD 06/15/2025 2:19 PM EDT [facility] Blood Venous blood specimen / Unknown Venipuncture / Unknown 06/15/2025 10:39 AM EDT 06/15/2025 10:39 AM EDT Angel Weber INSPECTOR OPEN DIE LAB BLOOD ORDERABLES Final R esult Performing Organization Address [facility] de Phone Number [facility] [address] [place] [address], [place] [phone] * Hemoglobin A1c (06/15/2025 10:39 AM EDT) Pathologist [facility] Hemoglobin A1C 6.0 <6.5 % LAB CHEMISTRY METHOD 06/15/2025 1:58 PM EDT [facility] Mean Bld Glu Estim. 126 mg/dL LAB CHEMISTRY METHOD 06/15/2025 1:58 PM EDT [facility] Blood Venous blood specimen / Unknown Venipuncture / Unknown 06/15/2025 10:39 AM EDT 06/15/2025 10:39 AM EDT Angel Weber INSPECTOR OPEN DIE LAB BLOOD ORDERABLES Final R esult Performing Organization Address [facility] de Phone Number [facility] [address] [place] [address], [place] [phone] * (ABNORMAL) Basic metabolic panel (06/15/2025 10:39 AM EDT) Sodium 139 133 - 145 mmol/L LAB CHEMISTRY METHOD 06/15/2025 12:55 PM EDT [facility] Potassium 4.0 3.5 - 5.5 mmol/L LAB CHEMISTRY METHOD 06/15/2025 12:55 PM EDT [facility] Chloride 104 96 - 110 mmol/L LAB CHEMISTRY METHOD 06/15/2025 12:55 PM EDT [facility] CO2 30 21 - 32 mmol/L LAB CHEMISTRY METHOD 06/15/2025 12:55 PM T [facility] Anion Gap 5 3 - 11 LAB CHEMISTRY METHOD 06/15/2025 12:55 PM [facility] Glucose 115(H) 70 - 100 mg/dL LAB CHEMISTRY METHOD 06/15/2025 12:55 PM [facility] BUN 17 5 - 25 mg/dL LAB CHEMISTRY METHOD 06/15/2025 12:55 PM T [facility] Creatinine 0.91 0.70 - 1.30 mg/dL LAB CHEMISTRY METHOD 06/15/2025 12:55 PM [facility] eGFR 107 >=60 mL/min/1. 73m2 LAB CHEMISTRY METHOD 06/15/2025 12:55 PM [facility] Comment:Calculation based on the Chronic Kidney Disease Epidemiology Collaboration (CKD-EPI) equation refit without adjustment for race. BUN/Creatinine Ratio 18.7 LAB CHEMISTRY METHOD 06/15/2025 12:55 PM [facility] Calcium 9.1 8.5 - 10.5 mg/dL LAB CHEMISTRY METHOD 06/15/2025 12:55 PM [facility] Blood Venous blood specimen / Unknown Venipuncture / Unknown 06/15/2025 10:39 AM EDT 06/15/2025 10:39 AM EDT us Angel Weber NP LAB BLOOD ORDERABLES Final R esult [facility] [address] [place] [address], * (ABNORMAL) Lipid panel with reflex to direct LDL (02/03/2025 7:54 AM EDT) Cholesterol 203(H) 0 - 200 mg/dL LAB CHEMISTRY METHOD 02/03/2025 11:42 AM EDT [facility] Triglycerides 147 0 - 150 mg/dL LAB CHEMISTRY METHOD 02/03/2025 11:42 AM EDT [facility] HDL 43 >=40 mg/dL LAB CHEMISTRY METHOD 02/03/2025 11:42 AM EDT [facility] LDL Calculated 131(H) 0 - 100 mg/dL LAB CHEMISTRY METHOD 02/03/2025 11:42 AM EDT [facility] VLDL Cholesterol Jr 29.4 mg/dL LAB CHEMISTRY METHOD 02/03/2025 11:42 AM EDT [facility] Non HDL Chol. (LDL+VLDL) 160(H) <145 mg/dL LAB CHEMISTRY METHOD 02/03/2025 11:42 AM EDT [facility] Chol/HDL Ratio 4.7(H) 0.0 - 4.4 LAB CHEMISTRY METHOD 02/03/2025 11:42 AM EDT [facility] Blood Venous blood specimen / Unknown Venipuncture / Unknown 02/03/2025 7:54 AM EDT 02/03/2025 7:54 AM EDT us Bonifacio Matias MD LAB BLOOD ORDERABLES F inal Result [facility] [address] [place] [address], * Microalbumin creatinine urine ratio (02/03/2025 7:54 [...] MD LAB URINE ORDERABLES F inal Result [facility] [address] [place] [address], [place] [phone] * Diabetes Foot Exam (05/04/2024) Diabetes: Annual Foot Exam abstracted Historical Provider HEALTH MAINTENANCE Final Result from Last 3 Months or Most Recently Relevant to Health Maintenance Insurance MEDICARE [place]ICAID [place] Q[place] Care Teams Gallery Or Museum Attendant Relationship Specialty Start Date End Date Carlos Garber MD [address] [place], [place] [phone] PCP - General Internal Medicine 09/15/14
--- OUTSIDE RECORDS SUMMARY | 2025-10-10 20:05 | XMS_ITS | Data Portability ---
Author Organization [facility], [address] Address [address] [place] [address] Assessment No assessment recorded. Plan of Treatment [...] ICD10 Code Diagnosis IMO Codes Diagnosis Note [id number] [facility] [place] [address] 06/03/2018 16:49:12 06/03/2018 17:52:38 [id number] [facility] [address] [facility] [address] [place] [address] 08/10/2019 18:23:06 08/10/2019 19:13:36 [id number] [address] [place] [address] 06/17/2019 19:40:07 06/17/2019 20:02:46 [id number] [address] [place] [address] 05/05/2022 10:24:21 05/05/2022 10:56:53 [id number] [address] [place] [address] 07/20/2019 17:20:55 07/20/2019 19:09:07 [id number] [address] [place] [address] 06/21/2019 18:31:50 06/21/2019 19:24:58 [id number] [address] [place] [address] 12/24/2021 16:05:59 12/24/2021 17:23:08 Health Concerns Section Related Observation LastModified by Organization Detai ls LastModified Time None Recorded Concern Status LastModified by Organization Details LastModified Time None Recorded Advance Directives Directive None Recorded Payers Insurance Date Sequence Insurance Name Policy Number Policy Glover Covered Member ID Glover Member ID Guarantor Name 11/04/2022 1 [place] [employer] SERVICES Bart Mitsry [id number] Bart Mistry 11/04/2022 2 [place] [facility] Bart Mistry [id number] Bart Mistry
== END 2025-10-10 15:29 | disposition home or self-care (01) ==
LOC: HO.HMGAL 15:29
PROVIDERS: PCP Internal Medicine; Visit Provider Registered Nurse Emergency
DX: J30.89 Other allergic rhinitis (principal)
CPT/HCPCS: 95117; 95165

== ENCOUNTER 2025-10-17 15:24 | Outpatient (AMB) | payer MEDICARE, MEDICAID, SELFPAY ==
--- OUTSIDE RECORDS SUMMARY | 2025-10-17 18:24 | XMS_ITS | Clinical Summary ---
Author Organization [facility] [address] [place] [address] [place] [phone] Phone Care Team Providers Care Planishing Hammer Operator Name Role Phone Carlos Garber MD Primary Care Provider [phone] Allergies Active Allergy Reactions Criticality Noted Date [...] Description 09/26/2025 2:15 PM EST Office Visit [address] [phone] Angel Weber NP Primary hypertension (Primary Dx); Prediabetes; Hypercholesteremia; Encounter for screening for cardiovascular disorders 08/29/2025 4:00 PM EDT Office Visit [address] [phone] Angel Weber NP Uncontrolled hypertension (Primary Dx); Gastric reflux 07/26/2025 4:00 PM EDT Office Visit [address] [phone] Angel Weber NP Trisomy 21 syndrome (Primary Dx); Elevated blood pressure reading; Prediabetes; Allergic rhinitis, unspecified seasonality, unspecified trigger from Last 3 Months Immunizations Immunization Administration Dates Next Due DTP 07/18/1987, 3,1982,1981,1982 [id number] (Pentacel) 2mo to less than 5yo 05/18/1985 [...] 10/01/1993,1982 OPV 07/18/1987, 3,1982,1981 PPD Test 09/21/2014,05/30/1992,07/08/1986 [employer] SARS-CoV-2 COVID-19, mRNA, LNP-S, preservative free 12/20/2021 [...] 11:15 AM EST Office Visit Adult Medicine [address] [phone] Carlos Garber MD [address] [place], [place] 01/24/2026 3:00 PM EDT Office Visit [address] [phone] Angel Weber NP [address] [place], [place] Health Maintenance Due Date Last Done [...] complication, without long-term current use of insulin ([facility] V24, [facility] V28) Hypercholesteremia Gastroesophageal reflux disease without esophagitis TRINITY (obstructive sleep apnea) Encounter for screening for cardiovascular disorders Need for hepatitis C screening test HEMOGLOBIN A1C Routine 06/15/2025 10:39 AM EDT Type 2 diabetes mellitus without complication, without long-term current use of insulin ([facility] V24, [facility] V28) Hypercholesteremia Gastroesophageal reflux disease without esophagitis TRINITY (obstructive sleep apnea) Encounter for screening for cardiovascular disorders Need for hepatitis C screening test MICROALBUMIN CREATININE URINE RATIO Routine 02/03/2025 7:54 AM EDT Type 2 diabetes mellitus with obesity ([facility] V24, [facility] V28) LIPID PANEL WITH REFLEX TO DIRECT LDL Routine 02/03/2025 7:54 AM EDT Type 2 diabetes mellitus with obesity ([facility] V24, [facility] V28) HM DIABETES FOOT EXAM Routine 05/04/2024 from Last 3 Months or Most Recently Relevant to Health Maintenance Results * Hepatitis C antibody (06/15/2025 10:39 AM EDT) Hepatitis C Antibody Negative Negative LAB CHEMISTRY METHOD 06/15/2025 2:19 PM EDT [facility] Blood Venous blood specimen / Unknown Venipuncture / Unknown 06/15/2025 10:39 AM EDT 06/15/2025 10:39 AM EDT Angel Weber CHANNEL INSTALLER LAB BLOOD ORDERABLES Final R esult Performing Organization Address [facility] de Phone Number [facility] [address] [place] [address], [place] [phone] * Hemoglobin A1c (06/15/2025 10:39 AM EDT) Pathologist [facility] Hemoglobin A1C 6.0 <6.5 % LAB CHEMISTRY METHOD 06/15/2025 1:58 PM EDT [facility] Mean Bld Glu Estim. 126 mg/dL LAB CHEMISTRY METHOD 06/15/2025 1:58 PM EDT [facility] Blood Venous blood specimen / Unknown Venipuncture / Unknown 06/15/2025 10:39 AM EDT 06/15/2025 10:39 AM EDT Angel Weber CHANNEL INSTALLER LAB BLOOD ORDERABLES Final R esult Performing Organization Address [facility] de Phone Number [facility] [address] [place] [address], [place] [phone] * (ABNORMAL) Basic metabolic panel (06/15/2025 10:39 AM EDT) Sodium 139 133 - 145 mmol/L LAB CHEMISTRY METHOD 06/15/2025 12:55 PM EDT [facility] Potassium 4.0 3.5 - 5.5 mmol/L LAB CHEMISTRY METHOD 06/15/2025 12:55 PM EDT [facility] Chloride 104 96 - 110 mmol/L LAB CHEMISTRY METHOD 06/15/2025 12:55 PM EDT [facility] CO2 30 21 - 32 mmol/L LAB CHEMISTRY METHOD 06/15/2025 12:55 PM T [facility] Anion Gap 5 3 - 11 LAB CHEMISTRY METHOD 06/15/2025 12:55 PM [facility] Glucose 115(H) 70 - 100 mg/dL LAB CHEMISTRY METHOD 06/15/2025 12:55 PM [facility] BUN 17 5 - 25 mg/dL LAB CHEMISTRY METHOD 06/15/2025 12:55 PM T [facility] Creatinine 0.91 0.70 - 1.30 [...] NP LAB BLOOD ORDERABLES Final R esult [facility] [address] [place] [address], * (ABNORMAL) Lipid panel with reflex to direct LDL (02/03/2025 7:54 AM EDT) Cholesterol 203(H) 0 - 200 mg/dL LAB CHEMISTRY METHOD 02/03/2025 11:42 AM EDT [facility] Triglycerides 147 0 - 150 mg/dL LAB CHEMISTRY METHOD 02/03/2025 11:42 AM EDT [facility] HDL 43 >=40 mg/dL LAB CHEMISTRY METHOD 02/03/2025 11:42 AM EDT [facility] LDL Calculated 131(H) 0 - 100 mg/dL LAB CHEMISTRY METHOD 02/03/2025 11:42 AM EDT [facility] VLDL Cholesterol Jr 29.4 mg/dL LAB CHEMISTRY METHOD 02/03/2025 11:42 AM EDT [facility] Non HDL Chol. (LDL+VLDL) 160(H) <145 mg/dL LAB CHEMISTRY METHOD 02/03/2025 11:42 AM EDT [facility] Chol/HDL Ratio 4.7(H) 0.0 - 4.4 LAB CHEMISTRY METHOD 02/03/2025 11:42 AM EDT [facility] Blood Venous blood specimen / Unknown Venipuncture / Unknown 02/03/2025 7:54 AM EDT 02/03/2025 7:54 AM EDT us Bonifacio Matias MD LAB BLOOD ORDERABLES F inal Result [facility] [address] [place] [address], * Microalbumin creatinine urine ratio (02/03/2025 7:54 AM EDT) Creatinine, Urine 128.0 mg/dL LAB CHEMISTRY METHOD 02/03/2025 11:35 AM EDT [facility] Microalb, Ur 15.3 0.0 - 29.0 mg/L LAB CHEMISTRY METHOD 02/03/2025 11:35 AM EDT [facility] Microalb/Creat Ratio 12 <30 mg/g creat LAB CHEMISTRY METHOD 02/03/2025 11:35 AM EDT [facility] Urine Urine specimen obtained by clean catch procedure / Unknown Non-blood Collection / Unknown 02/03/2025 7:54 AM EDT 02/03/2025 7:54 AM EDT Bonifacio Matias MD LAB URINE ORDERABLES F inal Result [facility] [address] [place] [address], [place] [phone] * Diabetes Foot Exam (05/04/2024) Diabetes: Annual Foot Exam abstracted Historical Provider HEALTH MAINTENANCE Final Result from Last 3 Months or Most Recently Relevant to Health Maintenance Insurance MEDICARE MEDICAID [place] QMB Care Teams Planishing Hammer Operator Relationship Specialty Start Date End Date Carlos Garber MD [address] [place], [place] [phone] PCP - General Internal Medicine 09/15/14
--- OUTSIDE RECORDS SUMMARY | 2025-10-17 18:24 | XMS_ITS | Data Portability ---
Author Organization [facility], [address] Address [address] [place] [address] Assessment No assessment recorded. Plan of Treatment [...] ICD10 Code Diagnosis IMO Codes Diagnosis Note [id number] [facility] [address] [place] [address] 06/03/2018 16:49:12 06/03/2018 17:52:38 [id number] [facility] [facility] [address] [place] [address] 08/10/2019 18:23:06 08/10/2019 19:13:36 [id number] [address] [address] [place] [address] 06/17/2019 19:40:07 06/17/2019 20:02:46 [id number] [address] [place] [address] 05/05/2022 10:24:21 05/05/2022 10:56:53 [id number] [address] [place] [address] 07/20/2019 17:20:55 07/20/2019 19:09:07 [id number] [address] [place] [address] 06/21/2019 18:31:50 06/21/2019 19:24:58 [id number] [address] [address] [place] [address] 12/24/2021 16:05:59 12/24/2021 17:23:08 Health Concerns Section Related Observation LastModified by Organization Detai ls LastModified Time None Recorded Concern Status LastModified by Organization Details LastModified Time None Recorded Advance Directives Directive None Recorded Payers Insurance Date Sequence Insurance Name Policy Number Policy Glover Covered Member ID Glover Member ID Guarantor Name 11/04/2022 1 [place] B-[place] [employer] Bart Mistry [id number] Bart Mistry 11/04/2022 2 [place] [facility] Bart Mistry [id number] Bart Mistry
== END 2025-10-17 15:25 | disposition home or self-care (01) ==
LOC: HO.HMGAL 15:24
PROVIDERS: PCP Internal Medicine; Visit Provider Registered Nurse Emergency
DX: J30.89 Other allergic rhinitis (principal)
CPT/HCPCS: 95117; 95165

== ENCOUNTER 2025-10-31 15:28 | Outpatient (AMB) | payer MEDICARE, MEDICAID, SELFPAY ==
--- OUTSIDE RECORDS SUMMARY | 2025-10-31 21:54 | XMS_ITS | Data Portability ---
Author Organization [facility], [address] Address [address] [place] [address] Assessment No assessment recorded. Plan of Treatment [...] ICD10 Code Diagnosis IMO Codes Diagnosis Note [id number] [facility] [address] [facility] [address] [place] [address] 06/03/2018 16:49:12 06/03/2018 17:52:38 [id number] [address] [facility] [address] [place] [address] 08/10/2019 18:23:06 08/10/2019 19:13:36 [id number] [address] [place] [address] 06/17/2019 19:40:07 06/17/2019 20:02:46 [id number] [address] [place] [address] 05/05/2022 10:24:21 05/05/2022 10:56:53 [id number] [address] [place] [address] 07/20/2019 17:20:55 07/20/2019 19:09:07 [id number] [address] [place] [address] 06/21/2019 18:31:50 06/21/2019 19:24:58 [id number] [address] [place] [address] 12/24/2021 16:05:59 12/24/2021 17:23:08 Health Concerns Section Related Observation LastModified by Organization Detai ls LastModified Time None Recorded Concern Status LastModified by Organization Details LastModified Time None Recorded Advance Directives Directive None Recorded Payers Insurance Date Sequence Insurance Name Policy Number Policy Glover Covered Member ID Glover Member ID Guarantor Name 11/04/2022 1 [place] B-[place]: [employer] Bart Mistry [id number] Bart Misrty 11/04/2022 2 [place] [facility] Bart Mistry [id number] Bart Mistry
--- OUTSIDE RECORDS SUMMARY | 2025-10-31 21:54 | XMS_ITS | Clinical Summary ---
Author Organization [facility] [address] [place] [address] [place] [phone] Phone Care Team Providers Care Fitting Room Attendant Name Role Phone Carlos Garber MD Primary Care Provider [phone] Allergies Active Allergy Reactions Criticality Noted Date [...] Encounters Date Type Department Care Team Description 10/27/2025 Telephone Adult Medicine [address] [phone] Carlos Garber MD 09/26/2025 2:15 PM EST Office Visit Adult Medicine [address] [phone] Angel Weber NP Primary hypertension (Primary Dx); Prediabetes; Hypercholesteremia; Encounter for screening for cardiovascular disorders 08/29/2025 4:00 PM EDT Office Visit Adult [address] [phone] Angel Weber NP Uncontrolled hypertension (Primary Dx); Gastric reflux from Last 3 Months Immunizations Immunization Administration Dates Next Due DTP 07/18/1987, 3,1982,1981,1982 [id number] (Pentacel) 2mo to less than 5yo 05/18/1985 [...] 10/01/1993,1982 OPV 07/18/1987, 3,1982,1981 PPD Test 09/21/2014,05/30/1992,07/08/1986 [employer] SARS-CoV-2 COVID-19, mRNA, LNP-S, preservative free 12/20/2021 [...] on file Sexual Orientation Not on file Last Filed Vital Signs Vital Sign Reading [...] 11:15 AM EST Office Visit Adult Medicine [address] [phone] Carlos Garber MD [address] [place] [address] 01/24/2026 3:00 PM EDT Office Visit Adult [address] [phone] Angel Weber NP [address] [place], [place] Health Maintenance Due Date Last Done [...] complication, without long-term current use of insulin ([facility] V24, [facility] V28) Hypercholesteremia Gastroesophageal reflux disease without esophagitis TRINITY (obstructive sleep apnea) Encounter for screening for cardiovascular disorders Need for hepatitis C screening test HEMOGLOBIN A1C Routine 06/15/2025 10:39 AM EDT Type 2 diabetes mellitus without complication, without long-term current use of insulin ([facility] V24, [facility] V28) Hypercholesteremia Gastroesophageal reflux disease without esophagitis TRINITY (obstructive sleep apnea) Encounter for screening for cardiovascular disorders Need for hepatitis C screening test MICROALBUMIN CREATININE URINE RATIO Routine 02/03/2025 7:54 AM EDT Type 2 diabetes mellitus with obesity ([facility] V24, [facility] V28) LIPID PANEL WITH REFLEX TO DIRECT LDL Routine 02/03/2025 7:54 AM EDT Type 2 diabetes mellitus with obesity ([facility] V24, [facility] V28) DIABETES FOOT EXAM Routine 05/04/2024 from Last 3 Months or Most Recently Relevant to Health Maintenance Results * Hepatitis C antibody (06/15/2025 10:39 AM EDT) Hepatitis C Antibody Negative Negative LAB CHEMISTRY METHOD 06/15/2025 2:19 PM EDT [email or web address] Blood Venous blood specimen / Unknown Venipuncture / Unknown 06/15/2025 10:39 AM EDT 06/15/2025 10:39 AM EDT Angel Weber MOUNTING MACHINE OPERATOR LAB BLOOD ORDERABLES Final R esult Performing Organization Address [facility]/ZIP Co de Phone Number [facility] [address] [place] [address], [place] [phone] * Hemoglobin A1c (06/15/2025 10:39 AM EDT) [facility] Hemoglobin A1C 6.0 <6.5 % LAB CHEMISTRY METHOD 06/15/2025 1:58 PM EDT [facility] Mean Bld Glu Estim. 126 mg/dL LAB CHEMISTRY METHOD 06/15/2025 1:58 PM EDT [facility] Blood Venous blood specimen / Unknown Venipuncture / Unknown 06/15/2025 10:39 AM EDT 06/15/2025 10:39 AM EDT Angel Weber MOUNTING MACHINE OPERATOR LAB BLOOD ORDERABLES Final R esult Performing Organization Address City/[facility]/ZIP Co de Phone Number [facility] [address] [place] [address], [place] [phone] * (ABNORMAL) Basic metabolic panel (06/15/2025 10:39 AM EDT) [facility] Sodium 139 133 - 145 mmol/L LAB CHEMISTRY METHOD 06/15/2025 12:55 PM EDT [facility] Potassium 4.0 3.5 - 5.5 mmol/L LAB CHEMISTRY METHOD 06/15/2025 12:55 PM EDT [facility] Chloride 104 96 - 110 mmol/L LAB CHEMISTRY METHOD 06/15/2025 12:55 PM EDT [facility] CO2 30 21 - 32 mmol/L LAB CHEMISTRY METHOD 06/15/2025 12:55 PM EDT [facility] Anion Gap 5 3 - 11 LAB CHEMISTRY METHOD 06/15/2025 12:55 PM EDT [facility] Glucose 115(H) 70 - 100 mg/dL LAB CHEMISTRY METHOD 06/15/2025 12:55 PM EDT [facility] BUN 17 5 - 25 mg/dL LAB CHEMISTRY METHOD 06/15/2025 12:55 PM EDT [facility] Creatinine 0.91 0.70 - 1.30 mg/dL LAB CHEMISTRY METHOD 06/15/2025 12:55 PM EDT [facility] eGFR 107 >=60 mL/min/1. 73m2 LAB CHEMISTRY METHOD 06/15/2025 12:55 PM EDT [facility] Comment:Calculation based on the Chronic Kidney Disease Epidemiology Collaboration (CKD-EPI) equation refit without adjustment for race. BUN/Creatinine Ratio 18.7 LAB CHEMISTRY METHOD 06/15/2025 12:55 PM EDT [facility] Calcium 9.1 8.5 - 10.5 mg/dL LAB CHEMISTRY METHOD 06/15/2025 12:55 PM T [facility] Blood Venous blood specimen / Unknown Venipuncture / Unknown 06/15/2025 10:39 AM EDT 06/15/2025 10:39 AM EDT us Angel Weber MOUNTING MACHINE OPERATOR LAB BLOOD ORDERABLES Final R esult [facility] [address] [place] [address], * (ABNORMAL) Lipid panel with reflex to direct LDL (02/03/2025 7:54 AM EDT) Cholesterol 203(H) 0 - 200 mg/dL LAB CHEMISTRY METHOD 02/03/2025 11:42 AM EDT [facility] Triglycerides 147 0 - 150 mg/dL LAB CHEMISTRY METHOD 02/03/2025 11:42 AM EDT [facility] HDL 43 >=40 mg/dL LAB CHEMISTRY METHOD 02/03/2025 11:42 AM EDT [facility] LDL Calculated 131(H) 0 - 100 mg/dL LAB CHEMISTRY METHOD 02/03/2025 11:42 AM EDT [facility] VLDL Cholesterol Jr 29.4 mg/dL LAB CHEMISTRY METHOD 02/03/2025 11:42 AM EDT [facility] Non HDL Chol. (LDL+VLDL) 160(H) <145 mg/dL LAB CHEMISTRY METHOD 02/03/2025 11:42 AM EDT [facility] Chol/HDL Ratio 4.7(H) 0.0 - 4.4 LAB CHEMISTRY METHOD 02/03/2025 11:42 AM EDT [facility] Blood Venous blood specimen / Unknown Venipuncture / Unknown 02/03/2025 7:54 AM EDT 02/03/2025 7:54 AM EDT us Bonifacio Matias MD LAB BLOOD ORDERABLES F inal Result [facility] [address] [place] [address], * Microalbumin creatinine urine ratio (02/03/2025 7:54 AM EDT) Creatinine, Urine 128.0 mg/dL LAB CHEMISTRY METHOD 02/03/2025 11:35 AM EDT [facility] Microalb, Ur 15.3 0.0 - 29.0 mg/L LAB CHEMISTRY METHOD 02/03/2025 11:35 AM EDT [facility] Microalb/Creat Ratio 12 <30 mg/g creat LAB CHEMISTRY METHOD 02/03/2025 11:35 AM T [facility] Urine Urine specimen obtained by clean catch procedure / Unknown Non-blood Collection / Unknown 02/03/2025 7:54 AM EDT 02/03/2025 7:54 AM EDT Bonifacio Matias MD LAB URINE ORDERABLES F inal Result [facility] ([facility] [[email or web address] [address] [place] [address], [place] [phone] * Diabetes Foot Exam (05/04/2024) [facility] Diabetes: Annual Foot Exam abstracted Historical Provider HEALTH MAINTENANCE Final Result from Last 3 Months or Most Recently Relevant to Health Maintenance Insurance MEDICARE MEDICAID [place] Q[place] Care Teams Fitting Room Attendant Relationship Specialty Start Date End Date Carlos Garber MD [address] [place] [address] PCP - General Internal Medicine 09/15/14
--- OUTSIDE RECORDS SUMMARY | 2025-10-31 21:54 | XMS_ITS | Encounter Summary ---
Author Organization [facility] Address [address] [place] [address] Care Team Providers Care Wastewater Operator Name Role Phone Carlos Garber MD Primary Care Provider [phone] Reason for Visit * Reason Onset Date Comments Dizziness 10/27/2025 Encounter Details Date Type Department Care Team (Late st Contact Info) Description 10/27/2025 Telephone Adult Medicine [facility] [address] [place] [phone] Carlos Garber MD [address] [place] [address] Social History Tobacco Use Types Packs/Day Years [...] as of this encounter Progress Notes * Radha Art RN - 10/27/2025 12:06 PM EST Call to [facility] Spoke to mother, when at work on Friday ,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 Mom to check his last visit, for the after visit summary. pt. Mother feels that he is fine, and will wait for upcoming appt with pcp . If there is another episode of dizziness she will call for appt * Christelle Morelos - 10/27/2025 11:33 AM EST Patient call requires triage: Symptoms patient is presenting: c/o dizziness How long has patient had these symptoms?: 10/24/25 For ALL patients calling to schedule any appointment (routine, sick visit, follow up, consult, etc.) in the outpatient setting please ask the following questions: Do you have fever of higher than 101, sore throat with difficulty swallowing or severe shortness ofbreath? no If YES to any of these above symptoms, send a message to triage and do not book. Red dot. If no, an audio or video visit should be booked. Have you had close contact with someone with Coronavirus in the last 14 days? no Have you traveled abroad? no Have you traveled recently to another state outside of [place], [place], [place], [place], [place], [place], [place]? no o If yes, did you quarantine for 14 days or have a negative covid test? no If yes to any of the above, patient is not to be scheduled in office until after 14 day quarantine or negative covid test. If pain or injury related was it due to an accident at work or from a motor vehicle accident? If yes, date of accident/Injury: No If yes, gather 3rd green party insurance information [employer] Party Information: not applicable PCP: Carlos Garber MD Payor: MEDICARE / Plan: MEDICARE PART A & B / Product Type: Medicare / documented in this encounter Plan of Treatment Upcoming Encounters Date Type Department Care Team (Late st Contact Info) Description 12/19/2025 11:15 AM EST Office Visit Adult [address] [phone] Carlos Garber MD [address] [place] [address] 01/24/2026 3:00 PM EDT Office Visit [address] [phone] Angel Weber NP [address] [place], [place] documented as of this encounter Visit Diagnoses Not on filedocumented in this encounter Additional Health Concerns Assessment Noted Time PHQ-9 Depression Total Score: 0 06/15/20 25 10:00 AM EDT documented as of this encounter Care Teams Wastewater Operator Relationship Specialty Start Date End Date Carlos Garber MD [address] [place] [address] PCP - General Internal Medicine 09/15/14 documented as of this encounter
== END 2025-10-31 15:28 | disposition home or self-care (01) ==
LOC: HO.HMGAL 15:28
PROVIDERS: PCP Internal Medicine; Visit Provider Registered Nurse Emergency
DX: J30.89 Other allergic rhinitis (principal)
CPT/HCPCS: 95117; 95165